=== PATIENT | female | born 1955 | race Caucasian/White ===

== ENCOUNTER 2018-04-15 17:58 | Inpatient (IN) | payer OTHER ==
[2018-04-15] MEDS ORDERED: GUAIFENESIN/DM 5 ML UCUP PO PRN (19:34)
[2018-04-15] MEDS ORDERED: ACETAMINOPHEN 500 MG TAB PO PRN (19:34)
[2018-04-15] MEDS ORDERED: ALPRAZOLAM 0.25 MG TABLET PO PRN (19:36)
[2018-04-15] MEDS ORDERED: MAGNES/ALUMIN/SIMET 30ML UCUP PO PRN (19:36)
[2018-04-15] MEDS ORDERED: MAGNESIUM HYDROXIDE 8% 30 ML PO PRN (19:36)
[2018-04-15 20:26] LABS: Absolute Lymphocytes (CBC) 1.5 K/uL (0.7-4.9); Absolute Neutrophil 6.5 K/uL (1.8-8.0); Basophils % 0.4 % (0-1.3); Eosinophils % 2.3 % (0-4.4); Hematocrit 40.4 % (36.0-45.0); Lymphocytes % 16.7 % (15.3-44.8); MCH 33.2 pg (27.0-35.0); MCV 94.6 fL (80-100); MPV 8.5 fL (7.6-11.3); Monocytes % 10.6 % (3.3-12.3); RBC Red Blood Cell Count 4.27 M/uL (3.86-4.86)
--- NOTE | 2018-04-15 20:41 | RAD REPORT ---
EXAM DESCRIPTION: RAD - Chest Pa And Lat (2 Views) - 04/15/2018 8:36 pm CLINICAL HISTORY: COPD exacerbation Chest pain. COMPARISON: Chest Single View dated 08/31/2016; Chest Single View dated 08/30/2016; CHEST PA AND LAT 2 VIEW dated 05/05/2013; CHEST PA AND LAT 2 VIEW dated 11/08/2006 TECHNIQUE: PA and lateral views of the chest were obtained. FINDINGS: The lungs are hyperexpanded compatible with COPD. The heart is upper limit of normal in si ze. No fracture or aggressive bony process. IMPRESSION: COPD without acute process identified.
[2018-04-15 20:49] LABS: Albumin 3.6 g/dL (3.4-5.0); Bilirubin Total 0.5 mg/dL (0.2-1.0); Magnesium 2.3 mg/dL (1.8-2.4); Potassium 4.1 mmol/L (3.5-5.1); Thyroid Stimulating Hormone 1.13 uIU/mL (0.360-3.740)
[2018-04-15] MEDS: ALBUTEROL 2.5 MG/3 ML NEB SOL NEB PRN (21:23)
[2018-04-15] MEDS: IPRATROPIUM BROM 0.5MG/2.5ML NEB SCH (21:23)
[2018-04-15] MEDS: ARFORMOTEROL TARTRATE 15 MCG/2 ML VIAL.NEB NEB SCH (21:23)
[2018-04-15] MEDS: Levofloxacin500mg IV 500 MG/100 ML BAG IV SCH (23:18)
[2018-04-15] MEDS: ENOXAPARIN 40 MG/0.4 ML SQ SCH (23:19)
[2018-04-16] MEDS: ALBUTEROL 2.5 MG/3 ML NEB SOL NEB PRN ×2 (02:09→07:43)
[2018-04-16] MEDS: IPRATROPIUM BROM 0.5MG/2.5ML NEB SCH ×4 (02:09→19:58)
--- NOTE | 2018-04-16 06:38 | HP ---
Date of Admission: 04/15/2018 Chief Complaint: Cough, congestion, shortness of breath. History Of Present Illness: This is a 62-year-old female patient who came in to office to see me on 03/21/2018 with almost 1-month long history of cough, nasal drainage, coughing up yellowish colored m ucus, hoarseness of voice, and wheezing for 1 month. After she was evaluated at the office, she was treated with a Z-German for this acute bronchitis type of symptom, and the patient came in today with wo rsening of symptoms as the patient had last 2 days with increasing cough, congestion, coughing up yel lowish colored mucus, some low-grade fever, and shortness of breath. Her shortness of breath is bad enough that she even gets short of breath when she is talking. This morning when she was in the show er, she got more short of breath that she even had hard time coming out. She came in to office with her today. She appeared extremely weak and tired; and after I evaluated her, decision was ma beatrice to admit her to the hospital. Allergies: ALLERGIC TO ADHESIVE TAPE CAUSING SKIN IRRITATION, CEFUROXIME CAUSING CLOSTRIDIUM DIFFICI LE COLITIS TYPE OF PROBLEM, CODEINE CAUSING BREATHING PROBLEM WHERE THE PATIENT DESCRIBED SHE QUIT BR EATHING AFTER TAKING IT. Medications: At home, she takes Advair 250/50 one puff 2 times a day, Spiriva 1 puff daily, alendron ate 70 mg weekly, calcium with magnesium with D 1 tablet 2 times a day, famotidine 40 mg daily, ProAi r inhaler p.r.n., and vitamin D daily. Review of Systems: Respiratory: As mentioned above. Constitutional: As mentioned above. All other systems reviewed and negative. Past Medical History: Chronic kidney disease stage 3, gastroesophageal reflux disease, COPD, osteopo rosis, and hyperlipidemia. Past Surgical History: Significant for hysterectomy with oophorectomy, appendectomy, and cholecystec praneeth. Family History: Diabetes and coronary artery disease. Social History: Positive for smoking. She smokes about 2 packs per day. Use of alcohol negative. The patient was advised and counseled to quit smoking, but she refuses that. Physical Examination: Vital Signs: When I saw her at office, height 64 inches, weight 214 pounds, blood pressure 106/72, r espiratory rate 18, pulse 88, temperature 99.2. General: Awake, alert, oriented, not in distress. HEENT: Head atraumatic, normocephalic. Conjunctivae nonerythematous. Sclerae white. Mouth, no thr ush or edema noted. Ears/Nose, no mass, lesion, discharge noted. Neck: Supple. No JVD, lymph nodes, bruit, thyromegaly noted. Lungs: The patient gets into coughing spells with any attempts to take a deep breath, and she has bi lateral wheezing. No rales. Mild respiratory distress while talking. Heart: Normal heart sounds, no murmur or gallop. Abdomen: Soft, bowel sounds normal. No guarding, rigidity, tenderness, mass, hepatosplenomegaly, dis tention, or bruit noted. Extremities: No leg edema. No calf tenderness. Skin: No rash, ulcer, cellulitis. Lymphatics: No lymph node enlargement in neck, supraclavicular, infraclavicular region. Neuro: No focal neurological deficit. Chest: Unremarkable. External Genitalia: Deferred. Rectal: Deferred. Laboratory Data: White count 9.2, hemoglobin 14.2 and platelets 240. Sodium 139, potassium 4.1, chl oride 104, bicarb 28, BUN 10, creatinine 1, and glucose 97. Liver function tests unremarkable. TSH 1.13. Chest x-ray; COPD without any acute process. Impression: 1.Acute exacerbation of chronic obstructive pulmonary disease. 2.Acute bronchitis. 3.Osteoporosis. 4.Gastroesophageal reflux disease. 5.Hyperlipidemia. Plan: Admit the patient to hospital for further evaluation and management of this problem. The verito ent is appropriate for inpatient and is expected to spend 2 midnights in the hospital. The patient h as failed outpatient treatment, and she is appropriate for inpatient management at this time. We danny l continue her home medications. Start her on oxygen nebulizer treatment. Deep venous thrombosis pr ophylaxis using Lovenox. IV antibiotic, and I will also start her on IV steroid. Code status discus sed with her; and according to the patient's decision, she is full code. Details and plan of treatme nt discussed with her and her . KIT/MODL Voice ID: [id number]
[2018-04-16] MEDS: ARFORMOTEROL TARTRATE 15 MCG/2 ML VIAL.NEB NEB SCH ×2 (07:43→19:58)
[2018-04-16] MEDS: ENOXAPARIN 40 MG/0.4 ML SQ SCH (21:14)
[2018-04-16] MEDS: Levofloxacin500mg IV 500 MG/100 ML BAG IV SCH (21:15)
--- NOTE | 2018-04-17 00:37 | PN ---
Date of Progress Note: 04/16/2018 Subjective: Patient was seen this morning for followup. No new complaints or problems reported by wally harris. Lying in bed. She does not feel any better compared to yesterday. Still has lot of cough, congestion, shortness of breath, wheezing. Objective: Vital signs: Reviewed. HEENT: Unremarkable. Lungs: Bilateral scattered wheezing present, unchanged from yesterday. Heart: Sounds normal. Abdomen: Soft. Bowel sounds normal. No guarding, rigidity, tenderness, or distention. Extremities: No leg edema. Impression: Acute exacerbation of chronic obstructive pulmonary disease. Plan: We will continue current medication, oxygen, nebulizer treatment, steroids, antibiotics, and I will see her tomorrow for followup. KIT/MODL Voice ID: [id number] Report ID: [id number]
[2018-04-17] MEDS: IPRATROPIUM BROM 0.5MG/2.5ML NEB SCH ×3 (01:57→14:30)
[2018-04-17 03:54] LABS: Urine Appearance CLEAR; Urine Bilirubin NEGATIVE (NEG); Urine Blood 1+ (NEG); Urine Color YELLOW; Urine Glucose NEGATIVE (NEG); Urine Protein NEGATIVE (NEG)
[2018-04-17 03:56] LABS: Urine Microscopic Reflex ORDER UMIC
[2018-04-17 04:53] LABS: Urine Bacteria <20 /HPF (<20); Urine Culture Reflex Order NOT NEEDED; Urine RBC <5 /HPF (NONE SEEN)
[2018-04-17] MEDS: ARFORMOTEROL TARTRATE 15 MCG/2 ML VIAL.NEB NEB SCH (07:15)
[2018-04-17] MEDS: METHYLPREDNISOLONE 40 MG INJ IV SCH ×2 (08:17→17:02)
--- NOTE | 2018-04-18 17:16 | DS ---
Date of Discharge: 04/17/2018 Disposition: The patient will be discharged to go home. Physical Examination: HEENT: Unremarkable. Lungs: Minimum wheezing noted, much better than before. Heart: Sounds normal. Abdomen: Soft. Bowel sounds normal. No guarding, rigidity, tenderness, or distention. Extremities: No leg edema. Hospital Course: A 63-year-old female patient, who came into office with cough, congestion, shortnes s of breath. Please see dictated H and P for more information. After the patient was evaluated at [facility], she was admitted to the hospital with acute exacerbation of COPD problem. Chest x-ray was neg ative for pneumonia. White count was 9.2, hemoglobin 14.2, platelets 240. Sodium 139, potassium 4.1 , chloride 104, bicarb 28, BUN 10, creatinine 1, glucose 97. Liver function tests unremarkable. The patient was started on oxygen, IV antibiotics, nebulizer treatment, and her condition overall improv ed. IV steroid was started today and the patient was anxious to go home. This morning, she was feel ing much better and I informed her and her that by this evening if she feels much better and feels comfortable going home, then I will be willing to discharge her, and nurse did contact me and i nformed me that the patient was feeling much better and wanted to go home this evening, so she was di scharged to go home in stable condition with following discharge medications and instructions. Final Diagnoses: 1.Acute exacerbation of chronic obstructive pulmonary disease. 2.Acute bronchitis. 3.Osteoporosis. 4.Gastroesophageal reflux disease. 5.Hyperlipidemia. Discharge Medications And Instructions: 1.Continue all prior home medications. 2.Take Levaquin 500 mg p.o. daily for 1 week and prednisone 10 mg, the patient to take 3 tablets p.o . daily for 3 days, then 2 tablets daily for 3 days, then 1 tablet daily for 3 days, then stop. 3.Follow up at my office in 2 weeks. KIT/MODL Voice ID: [id number] Report ID: [id number]
== END 2018-04-17 18:32 | disposition home or self-care (01) | DRG 202 ==
LOC: 4TH 18:12
PROVIDERS: ADMIT Internal Medicine; ATTEND Internal Medicine
DX: J20.9 Acute bronchitis, unspecified (principal); J44.1 Chronic obstructive pulmonary disease with (acute) exacerbation; J44.0 Chronic obstructive pulmonary disease with (acute) lower respiratory infection; K21.9 Gastro-esophageal reflux disease without esophagitis; E78.5 Hyperlipidemia, unspecified; M81.0 Age-related osteoporosis without current pathological fracture; N18.3 Chronic kidney disease, stage 3 (moderate); F17.210 Nicotine dependence, cigarettes, uncomplicated; Z88.1 Allergy status to other antibiotic agents; Z88.5 Allergy status to narcotic agent; Z91.048 Other nonmedicinal substance allergy status
CPT/HCPCS: 36415; 71046; 80053; 81003; 81015; 83735; 84443; 85025; 94640; J1650; J2920; J7605

== ENCOUNTER 2019-02-03 06:27 | Day surgery (SDC) | payer OTHER ==
[2019-01-31 12:50] LABS: Absolute Lymphocytes (CBC) 2.7 K/uL (0.7-4.9); Basophils % 0.8 % (0-1.3); Eosinophils % 1.4 % (0-4.4); Hematocrit 39.1 % (36.0-45.0); MPV 8.9 fL (7.6-11.3); RBC Red Blood Cell Count 4.18 M/uL (3.86-4.86)
[2019-01-31 12:59] LABS: Protime INR 1.04
[2019-01-31 13:10] LABS: BUN Blood Urea Nitrogen 24 mg/dL (7-18); Bicarbonate 25 mmol/L (21-32); Glucose Level 89 mg/dL (74-106); HDL Cholesterol 49 mg/dL (40-60); LDL Cholesterol, Calculated 98 (<130); Potassium 3.4 mmol/L (3.5-5.1); Sodium Level 143 mmol/L (136-145); Troponin I < 0.02 ng/mL (0.0-0.045)
[2019-02-03] MEDS ORDERED: LIDOCAINE 1% MPF 30 ML VIAL ONE (06:54)
[2019-02-03] MEDS ORDERED: HEPA 1000U/500MLS 1,000 UNIT/500 ML BAG IV ONE (06:54)
[2019-02-03] MEDS ORDERED: NA CHLORIDE 0.9% 500 ML ONE (06:54)
[2019-02-03] MEDS ORDERED: MIDAZOLAM HCL 2 MG/2 ML INJ ONE (07:42)
[2019-02-03] MEDS ORDERED: FENTANYL CITR 100 MCG/2 ML ONE (07:42)
[2019-02-03] MEDS ORDERED: NA CHLORIDE 0.9% 0 ML ONE (07:43)
[2019-02-03] MEDS ORDERED: ATROPINE SULF 1 MG/10 ML SYR IV ONE (07:43)
[2019-02-03] MEDS ORDERED: ONDANSETRON 4 MG/2 ML VIAL ONE (07:43)
--- NOTE | 2019-02-03 14:49 | OP ---
Date of Procedure: 02/03/2019 Surgeon: Jt Lee MD Bolt Labeler: Jen Palacio. Procedure: Left heart catheterization with selective coronary artery angiogram. Indication: Unstable angina. Procedure In Detail: The patient had been admitted to the [facility] as an outpatient on today . She was prepped and draped in the routine sterile fashion. She was given 4 mg of Versed for IV sedation. A 6-Belizean sheath introduced in the right common femoral artery. Angio-Seal was used to close the groin. Presley catheter left and right 6-Belizean used to do the diagnostic catheterization. She was found to have a normal circumflex, codominant system, minor plaquing in the LAD and the cir cumflex but no focal stenosis. A 6-Belizean catheters and sheath were used. Complications: No complications. Blood Loss: 5 cc. Postoperative Diagnosis: Minimal coronary artery disease. We will continue medical treatment. Anesthesia: Total conscious sedation with 30 minutes. The patient will go home today and she will see me in the office in about 2 weeks. HAYLEY/ISAAC Voice ID: [id number] Report ID: [id number]
== END 2019-02-03 10:10 | disposition home or self-care (01) ==
LOC: CCL 06:27
PROC: B201YZZ Plain Radiography of Multiple Coronary Arteries using Other Contrast (ICD-10-PCS; principal; 2019-02-03)
DX: I25.110 Atherosclerotic heart disease of native coronary artery with unstable angina pectoris (principal); Z88.6 Allergy status to analgesic agent; Z88.8 Allergy status to other drugs, medicaments and biological substances; Z88.9 Allergy status to unspecified drugs, medicaments and biological substances
CPT/HCPCS: 36415; 80048; 80061; 84443; 84484; 85025; 85610; 85730; 93454; C1893; J0583; J2250; J2405; J3010

== ENCOUNTER 2019-02-10 17:26 | Observation (INO) | payer OTHER ==
[2019-02-10 18:12] LABS: Absolute Lymphocytes (CBC) 3.2 K/uL (0.7-4.9); Basophils % 1.1 % (0-1.3); Eosinophils % 1.7 % (0-4.4); Hematocrit 38.6 % (36.0-45.0); Lymphocytes % 29.3 % (15.3-44.8); MPV 8.7 fL (7.6-11.3); Monocytes % 7.2 % (3.3-12.3); RBC Red Blood Cell Count 4.19 M/uL (3.86-4.86)
[2019-02-10 18:38] LABS: Albumin 3.5 g/dL (3.4-5.0); Bilirubin Total 0.5 mg/dL (0.2-1.0); Magnesium 2.2 mg/dL (1.8-2.4); Potassium 3.4 mmol/L (3.5-5.1); Thyroid Stimulating Hormone 1.97 uIU/mL (0.360-3.740)
[2019-02-10 18:54] LABS: Arterial Blood Carboxyhemoglob 1.7 % (0-1.5); Blood Gas Oxyhemoglobin 94.4 % (94-97); Blood O2 Saturation 96.5 % (92-98.5)
[2019-02-10] MEDS ORDERED: METHYLPREDNISOLONE 40 MG INJ IV ONE (18:54)
[2019-02-10] MEDS ORDERED: POTASSIUM CL SA 10 MEQ TAB PO ONE (20:00)
--- NOTE | 2019-02-10 20:39 | RAD REPORT ---
EXAM DESCRIPTION: CT - Chest For Pe Angio - 02/10/2019 8:24 pm CLINICAL HISTORY: sob COMPARISON: 2017 TECHNIQUE: Dynamically enhanced axial 3 mm thick images of the chest were obtained during administra tion of <100> mL Isovue 370 IV contrast. Coronal and oblique reconstruction images were generated and reviewed. Exam utilizes a protocol for optimal evaluation of pulmonary arterial tree. Maximum intensity projections 3D imaging was utilized All CT scans are performed using dose optimization technique as appropriate and may include automated exposure control or mA/KV adjustment according to patient size. FINDINGS: A pulmonary embolus is not seen. A thoracic aortic aneurysm is not noted. A pleural effusion is not seen. A pericardial effusion is not seen. A lung consolidation is not present. Mild COPD 13 millimeter left adrenal mass unchanged probably an adenoma IMPRESSION: Negative for a pulmonary embolism.
[2019-02-10] MEDS: ALBUTEROL 2.5 MG/3 ML NEB SOL NEB SCH (23:30)
[2019-02-10] MEDS: IPRATROPIUM BROM 0.5MG/2.5ML NEB SCH (23:30)
[2019-02-11] MEDS: IPRATROPIUM BROM 0.5MG/2.5ML NEB SCH ×4 (03:40→16:00)
[2019-02-11] MEDS: ALBUTEROL 2.5 MG/3 ML NEB SOL NEB SCH ×4 (03:40→16:00)
[2019-02-11 05:06] LABS: Potassium 3.3 mmol/L (3.5-5.1)
[2019-02-11] MEDS ORDERED: POTASSIUM CL SA 10 MEQ TAB PO ONE (07:00)
[2019-02-11] MEDS ORDERED: NA CHLORIDE 0.9% 1,000 ML IV SCH (08:00)
[2019-02-11 08:23] LABS: Potassium 4.1 mmol/L (3.5-5.1)
[2019-02-11] MEDS: NA CHLORIDE 0.9% 1,000 ML IV SCH ×2 (08:43→16:00)
[2019-02-11] MEDS ORDERED: DULERA 100/5 (MOMETASONE/FORMOTEROL) INHALER IH SCH (09:00)
[2019-02-11] MEDS ORDERED: ENOXAPARIN 40 MG/0.4 ML SQ SCH (09:00)
[2019-02-11] MEDS: TIOTROPIUM 5 SPRAYS/INHALER IH SCH ×2 (09:00→13:34)
--- NOTE | 2019-02-11 10:39 | RAD REPORT ---
EXAM DESCRIPTION: CT - Abdomen Pelvis Wo Contrast - 02/11/2019 9:58 am CLINICAL HISTORY: Abdominal pain, bloating COMPARISON: CT angio February 10 TECHNIQUE: Axial [address] imaging of the abdomen and pelvis was performed without IV contrast. No IV contrast was given because of allergy, abnormal renal function, patient refusal or physician re quest. Oral contrast was given. All CT scans are performed using dose optimization technique as appropriate and may include automated exposure control or mA/KV adjustment according to patient size. FINDINGS: No suspicious findings in the lung bases. The liver, spleen and pancreas show no suspicious findings on non-contrast imaging. Gallbladder is ti ghtly contracted or absent. No cholecystectomy clips are seen. No biliary tree dilatation. No hydronephrosis or suspicious renal mass. No significant adrenal finding. Isodense renal masses an d pyelonephritis cannot be excluded in the absence of IV contrast. No bladder abnormality seen. Contr ast is present in the urinary bladder as a remnant from the prior day contrast CT study. Uterus is ab sent. Ovaries are absent or atrophic. No adnexal mass. No dilated bowel loops or bowel wall thickening. No free air, free fluid or inflammatory stranding. N o mass or bulky lymphadenopathy. Patient has a very small 10 mm fat only umbilical hernia. No suspicious bony findings. IMPRESSION: Non-contrast enhanced CT abdomen and pelvis imaging show no significant or suspicious fi nding. Full assessment is limited is the absence of IV contrast.
[2019-02-11 15:30] LABS: Potassium 3.7 mmol/L (3.5-5.1)
--- NOTE | 2019-02-11 18:53 | HP ---
Date of Admission: 02/10/2019 Chief Complaint: Shortness of breath. History Of Present Illness: This is a 63-year-old female patient who has a longstanding history of s moking and recently quit within last month or 2 months, came into office today for followup. She is having shortness of breath with any day-to-day activity lately. Uses her inhaler regularly. She was on Advair and Spiriva and recently started seeing Dr. Quintero who changed to [place] and patient sa ys that this really gave bad taste in the mouth and did not help any better than Advair and Spiriva, so she went back to her Advair and Spiriva inhaler. Her furosemide was discontinued and she was give n acetazolamide but by mistake she has continued to take furosemide instead of acetazolamide as she r eports. The patient also was seen by [facility], had echocardiogram done within last month at the office of [facility], which was unremarkable with normal ejection fraction and Dr. Navarrete did a car diac catheterization on her on February 03, 2019, showed normal coronary arteries. So the patient came in to office today. Her room air oxygen saturation at office was ranging anywhere from 80% to 87%. We tried to check oxygen saturation on multiple different fingers and the lowest was 80%, highest was 87 %. With this significant hypoxia problem, the patient was admitted directly to the hospital. Allergies: TO CODEINE, CEFUROXIME AND TAPE. Medications: List reviewed. Review of Systems: Respiratory: As mentioned above. Cardiovascular: Has bilateral leg edema. All other systems revie wed and negative. Social History: Longstanding history of smoking and she quit smoking within last couple of months or so. Family History: Diabetes, coronary artery disease. Past Medical History: Gastroesophageal reflux disease, COPD, hyperlipidemia, osteoporosis, and chron ic kidney disease stage 3. Past Surgical History: Hysterectomy with oophorectomy, appendectomy, cholecystectomy. Physical Examination: Vital Signs: When the patient was first admitted, temperature 97, pulse 78, respiratory rate 20, blo od pressure 143/74, oxygen saturation was recorded 97% on room air at the hospital. General: Awake, alert, oriented, not in distress. HEENT: Head atraumatic, normocephalic. Conjunctivae nonerythematous. Sclerae white. Mouth, no thr ush or edema noted. Ears/Nose, no mass, lesion, discharge noted. Neck: Supple. No JVD, lymph nodes, bruit, thyromegaly noted. Lungs: Bilateral good equal air entry. Clear to auscultation. No rhonchi. No rales. Heart: Normal heart sounds, no murmur or gallop. Abdomen: Soft, bowel sounds normal. No guarding, rigidity, tenderness, mass, hepatosplenomegaly, dis tention, or bruit noted. Extremities: Bilateral grade 1 pedal edema. Skin: No rash, ulcer, cellulitis. Lymphatics: No lymph node enlargement in neck, supraclavicular, infraclavicular region. Neuro: No focal neurological deficit. Chest: Unremarkable. External Genitalia: Deferred. Rectal: Deferred. Laboratory Data: White count 11, hemoglobin 13.1, platelets 323 with room air arterial blood gas pH 7.44, pCO2 34.2, PO2 76.8, oxygen saturation 96.5% on room air. Sodium 142, potassium 3.4, chloride 110, bicarb 25, BUN 19, creatinine 1.07, glucose 82. Liver function tests unremarkable. TSH 1.97. CT scan of the chest per PE protocol was ordered to be done stat and results came back negative for a ny evidence of pulmonary embolism. Impression: 1.Hypoxia. 2.Severe chronic obstructive pulmonary disease. 3.Hypokalemia. 4.Gastroesophageal reflux disease. 5.Osteoporosis. 6.Hyperlipidemia. Plan: Admit the patient to hospital for further evaluation and management of this problem. We wante d to go ahead and get a CT scan of the chest per PE protocol as that has not been ruled out with her significant shortness of breath complaint and after she was admitted to the hospital, this test was d one, result came back negative. She had significant hypoxia as it was evident in office and at the h ospital we are not able to demonstrate that so what likely scenario is probably the patient has long thick fingernails with nail maltese on it and we tried 3-4 different multiple fingers at the office an d the result was same with oxygen saturation ranging from 80-87%, but we are not able to demonstrate that at the hospital, so very likely what we were reading at the office was probably was not accurate reading on the oxygen saturation. In any case, we will continue to monitor her overnight here in [facility] and I will visit with her tomorrow and will have respiratory therapist also evaluate her t o see whether she has any hypoxia and if she does need and qualify for home oxygen or not but so far, it appears that she does not. Home medications will be continued. We will repeat blood work tomorr ow, replace potassium per protocol and please add diagnosis of hypokalemia. I will see her tomorrow morning for followup. KIT/MODL Voice ID: [id number]
[2019-02-11] MEDS ORDERED: ADVAIR IH SCH (21:00)
--- NOTE | 2019-02-12 02:18 | DS ---
Date of Discharge: 02/11/2019 Disposition: Discharged to go home. Physical Examination: HEENT: Unremarkable. Lungs: Clear to auscultation. Heart: Sounds normal. Abdomen: Soft. Bowel sounds normal. No guarding, rigidity, tenderness, distention. Extremities: Bilateral grade 1 pedal edema. Laboratory Data: Yesterday upon admission, sodium 142, potassium 3.4, chloride 110, bicarb 25, BUN 1 9, creatinine 1.07. This morning, BUN 22, creatinine 1.57, potassium 3.3, and after IV fluid hydrati on, last BUN 21, creatinine 1.09, and potassium 3.7. Yesterday, blood gas, pH 7.44, pCO2 34.2, PO2 7 6.8, saturation 96.5 on room air. CAT scan of the abdomen done today without IV contrast was unremar kable and CAT scan of the chest per PE protocol done yesterday shows no evidence of pulmonary embolis m. Hospital Course: A 63-year-old female patient admitted to the hospital with shortness of breath prob rose along with hypoxia. Please see dictated H and P for more information. After the patient was adm itted to the hospital, further workup was done including CAT scan of the chest per PE protocol, which was negative for pulmonary embolism. Her oxygen saturation at office was ranging from 80% to 87% an d this was on room air and we checked on multiple different fingers and lowest oxygen saturation was 80%, highest 87%. Ever since she has been in hospital, her oxygen saturation has been around 96-97% on room air. Today, I talked to respiratory therapist and requested respiratory therapist to have th e patient walk in the hallway with monitoring of her oxygen saturation and the patient walked for abo ut 10 minutes or so and her oxygen saturation remained at 97% on room air. So, obviously it is clear that the patient's hypoxia that was noted yesterday in the office was not a true result. It was fal se result and likely due to her thick fingernails with some nail panamanian that probably was affecting t he accuracy of the oxygen saturation level. In any case, we do not have any evidence of hypoxia duri ng this hospitalization. The patient does not need any home oxygen. I did talk to her personal care worker , Dr. Quintero and details were discussed with him. The patient was requested to follow up with him next week and Dr. Quintero was made aware of all these test results. The patient's creatinine was el evated this morning, very likely from IV contrast that she received yesterday with a CT scan of the c hest and after IV fluid hydration, creatinine has returned back to normal. Final Diagnoses: 1.Hypoxia. 2.Severe COPD. 3.Hypokalemia. 4.Gastroesophageal reflux disease. 5.Osteoporosis. 6.Hyperlipidemia. 7.Acute kidney injury, resolved. KIT/MODL Voice ID: [id number] Report ID: [id number]
[2019-02-12] MEDS ORDERED: LEVOTHYROXINE SODIUM 50 MCG PO SCH (06:30)
== END 2019-02-11 17:30 | disposition home or self-care (01) ==
LOC: 4TH 17:26
PROVIDERS: ADMIT Internal Medicine; ATTEND Internal Medicine
DX: J44.9 Chronic obstructive pulmonary disease, unspecified (principal); N18.3 Chronic kidney disease, stage 3 (moderate); K21.9 Gastro-esophageal reflux disease without esophagitis; E87.6 Hypokalemia; E78.5 Hyperlipidemia, unspecified; M81.0 Age-related osteoporosis without current pathological fracture; Z87.891 Personal history of nicotine dependence; N17.9 Acute kidney failure, unspecified
CPT/HCPCS: 36415; 71275; 74176; 80048; 80053; 82805; 83735; 84132; 84443; 85025; 94640; G0378; J1650; J2920; J7030; J7606; Q9967

== ENCOUNTER 2022-12-24 12:11 | Inpatient (IN) | payer OTHER ==
[2022-12-24] MEDS ORDERED: IPRATROPIUM BROM 0.5MG/2.5ML ONE (12:47)
[2022-12-24] MEDS ORDERED: ALBUTEROL 2.5 MG/3 ML NEB SOL ONE (12:47)
[2022-12-24] MEDS ORDERED: METHYLPREDNISOLONE 125 MG INJ ONE (12:47)
--- NOTE | 2022-12-24 13:00 | RAD REPORT ---
EXAM DESCRIPTION: RAD - Chest Single View - 12/24/2022 12:51 pm CLINICAL HISTORY: COPD Chest pain. COMPARISON: <Comparisons> FINDINGS: Portable technique limits examination quality. Mild interstitial pulmonary edema suspected. The heart is upper limit of normal in size. No displaced fractures. IMPRESSION: Mild pulmonary edema.
[2022-12-24 13:53] LABS: Absolute Lymphocytes (CBC) 1.3 K/uL (0.7-4.9); Hematocrit 40.5 % (36.0-45.0); MCV 89.8 fL (80-100); MPV 8.3 fL (7.6-11.3); RBC Red Blood Cell Count 4.51 M/uL (3.86-4.86)
[2022-12-24 14:11] LABS: Albumin 3.7 g/dL (3.4-5.0); Bilirubin Total 0.6 mg/dL (0.2-1.0); Potassium 3.6 mEq/L (3.5-5.1); Protein, Total 7.6 g/dL (6.4-8.2); Troponin High Sensitivity 6.9 pg/mL (<58.9)
[2022-12-24] MEDS ORDERED: FUROSEMIDE 40 MG/4 ML VIAL ONE (15:04)
--- NOTE | 2022-12-24 15:09 | EDPHYS ---
Physician Documentation [facility] Name: Suma James Age: 67 yrs Sex: Female : 1955 Arrival Date: 12/24/2022 Time: 12:11 Bed 16 Private MD: Carl Ambriz C ED Physician Gallito Hyman HPI: 12/24 16:12 This 67 yrs old Female presents to ER via Wheelchair with complaints of Breathing rt Difficulty. 16:12 Patient with history of COPD presents to the ED with progressively worsening dyspnea, rt cough, nonproductive over the past 2 days. Denies chest pain, states that her lungs do feel tight. Denies other acute complaints at this time. Symptoms are moderate in severity, no other aggravating or alleviating factors.. Historical: - Allergies: 12:19 Ceftin; iw 12:19 Codeine; iw 12:19 Tape; iw - PMHx: 12:19 Chronic obstructive lung disease; iw - PSHx: 12:19 hysterectomy; Appendectomy; Tonsillectomy; Cholecystectomy; iw - Immunization history:: Flu vaccine is up to date. - Social history:: Smoking status: Patient/guardian denies using tobacco, the patient reports quitting approximately 4 years ago. - Family history:: not pertinent. ROS: 16:12 Constitutional: Negative for fever, chills, and weight loss, Eyes: Negative for injury, rt pain, redness, and discharge, Cardiovascular: Negative for chest pain, palpitations, and edema, Abdomen/GI: Negative for abdominal pain, nausea, vomiting, diarrhea, and constipation, MS/Extremity: Negative for injury and deformity, Skin: Negative for injury, rash, and discoloration, Neuro: Negative for headache, weakness, numbness, tingling, and seizure, Psych: Negative for depression, anxiety, suicide ideation, homicidal ideation, and hallucinations. 16:12 Respiratory: Positive for cough, shortness of breath. Exam: 16:10 ECG was reviewed by the Attending Physician. rt 16:12 Constitutional: This is a well developed, well nourished patient who is awake, alert, rt and in no acute distress. Head/Face: Normocephalic, atraumatic. Chest/axilla: Normal chest wall appearance and motion. Nontender with no deformity. No lesions are appreciated. Cardiovascular: Regular rate and rhythm with a normal S1 and S2. No gallops, murmurs, or rubs. Normal PMI, no JVD. No pulse deficits. Abdomen/GI: Soft, non-tender, with normal bowel sounds. No distension or tympany. No guarding or rebound. No evidence of tenderness throughout. Skin: Warm, dry with normal turgor. Normal color with no rashes, no lesions, and no evidence of cellulitis. MS/ Extremity: Pulses equal, no cyanosis. Neurovascular intact. Full, normal range of motion. Neuro: Awake and alert, GCS 15, oriented to person, place, time, and situation. Cranial nerves II-XII grossly intact. Motor strength 5/5 in all extremities. Sensory grossly intact. Cerebellar exam normal. Normal gait. Psych: Awake, alert, with orientation to person, place and time. Behavior, mood, and affect are within normal limits. 16:12 Respiratory: Wheezes on all lung lazaro with bibasilar crackles, mild to moderate respiratory distress. Vital Signs: 12:17 BP 144 / 71; Pulse 98; Resp 24 S; Temp 98.3; Pulse Ox 94% on R/A; Weight 104.33 kg; iw Height 5 ft. 2 in. ; 13:15 BP 135 / 72; Pulse 96; Resp 20; Pulse Ox 100% on R/A; eh3 14:15 BP 125 / 71; Pulse 104; Resp 20; Pulse Ox 95% on R/A; eh3 15:15 BP 141 / 61; Pulse 97; Resp 20; Pulse Ox 97% on R/A; eh3 16:15 BP 141 / 86; Pulse 99; Resp 20; Pulse Ox 98% on R/A; eh3 12:17 Body Mass Index 42.07 (104.33 kg, 157.48 cm) iw MDM: 12:21 Patient medically screened. rt 16:14 Differential diagnosis: CHF exacerbation, Chronic Obstructive Pulmonary Disease rt Myocardial Infarction pulmonary edema, Pulmonary Embolism reactive airway disease. Data reviewed: vital signs, nurses notes. Consideration of Admission/Observation Patient was admitted/placed on observation. Management of patient was discussed with the following: Primary Care Provider: Agrees to admit. I considered the following discharge prescriptions or medication management in the emergency department Medications were administered in the Emergency Department. See MAR. Counseling: I had a detailed discussion with the patient and/or guardian regarding: the historical points, exam findings, and any diagnostic results supporting the discharge/admit diagnosis, lab results, radiology results, the need for further work-up and treatment in the hospital. 12/24 12:29 Order name: CBC with Diff; Complete Time: 14:06 rt 12/24 12:29 Order name: CMP; Complete Time: 14:15 rt 12/24 12:29 Order name: Troponin High Sensitivity; Complete Time: 14:15 rt 12/24 12:29 Order name: BNP; Complete Time: 14:15 rt 12/24 12:29 Order name: Chest Single View XRAY; Complete Time: 13:02 rt 12/24 15:02 Order name: CT Chest For PE Angio rt 12/24 15:40 Order name: CT; Complete Time: 16:09 EDMS 12/24 12:29 Order name: EKG; Complete Time: 12:29 rt 12/24 12:29 Order name: EKG - Nurse/Tech; Complete Time: 12:43 rt EC:10 Rate is 99 beats/min. Rhythm is regular, Normal Sinus Rhythm with No ectopy. QRS [place] rt is Normal. LA interval is normal. QRS interval is normal. QT interval is normal. Clinical impression: NSR w/ Non-specific ST/T Changes. Interpreted by me. Administered Medications: 12:45 Drug: DuoNeb Nebulize (3:1) (2.5 mg - 0.5 mg) 3 ml Route: Nebulizer; 3 13:30 Follow up: Response: Wheezing diminished eh3 13:45 Drug: MethylPrednisoLONE IVP 125 mg Route: IVP; Site: left antecubital; eh3 14:45 Follow up: Response: No adverse reaction eh3 15:00 Drug: Furosemide IVP 40 mg Route: IVP; Site: left antecubital; eh3 16:00 Follow up: Response: No adverse reaction eh3 Disposition Summary: 12/24/22 15:09 Hospitalization Ordered Hospitalization Status: Observation rt Provider: Carl Ambriz rt Location: Telemetry/MedSurg (observation) rt Condition: Stable rt Problem: new rt Symptoms: have improved rt Bed/Room Type: Standard rt Room Assignment: 221(12/24/22 15:54) eb Diagnosis - Acute pulmonary edema rt - Hypoxemia rt Forms: - Medication Reconciliation Form rt - SBAR form rt Signatures: Dispatcher [employer] EDMS Portillo, Luana, RN RN Christine Sevilla Erin, RN RN eh3 Gallito Hyman MD MD rt Corrections: (The following items were deleted from the chart) 15:54 15:09 rt eleanor
--- NOTE | 2022-12-24 15:09 | ER ---
Nurse's Notes [facility] Name: Suma James Age: 67 yrs Sex: Female : 1955 Arrival Date: 12/24/2022 Time: 12:11 Bed 16 Private MD: Carl Ambriz C Diagnosis: Acute pulmonary edema;Hypoxemia Presentation: 12/24 12:17 Chief complaint: Patient states: hx of COPD , has been sick past two days, diff iw breathing , gets hot and cold , feeling weak and tired. Coronavirus screen: Client presents with at least one sign or symptom that may indicate coronavirus-19. Ebola Screen: Patient negative for fever greater than or equal to 101.5 degrees Fahrenheit, and additional compatible Ebola Virus Disease symptoms Patient denies exposure to infectious person. Patient denies travel to an Ebola-affected area in the 21 days before illness onset. No symptoms or risks identified at this time. Initial Sepsis Screen: Does the patient meet any 2 criteria? No. Patient's initial sepsis screen is negative. Does the patient have a suspected source of infection? No. Patient's initial sepsis screen is negative. Risk Assessment: Do you want to hurt yourself or someone else? Patient reports no desire to harm self or others. Onset of symptoms was December 22, 2022. 12:17 Method Of Arrival: Wheelchair iw 12:17 Acuity: ARIEL 3 iw Triage Assessment: 12:30 General: Appears in no apparent distress. uncomfortable, Behavior is cooperative, eh3 appropriate for age, anxious. Respiratory: Onset: The symptoms/episode began/occurred gradually. Respiratory: the patient has moderate shortness of breath. Historical: - Allergies: 12:19 Ceftin; iw 12:19 Codeine; iw 12:19 Tape; iw - PMHx: 12:19 Chronic obstructive lung disease; iw - PSHx: 12:19 hysterectomy; Appendectomy; Tonsillectomy; Cholecystectomy; iw - Immunization history:: Flu vaccine is up to date. - Social history:: Smoking status: Patient/guardian denies using tobacco, the patient reports quitting approximately 4 years ago. - Family history:: not pertinent. Screenin:30 [facility] ED Fall Risk Assessment (Adult) Score/Fall Risk Level 0 - 2 = Low Risk. Abuse eh3 screen: Denies threats or abuse. Denies injuries from another. Nutritional screening: No deficits noted. Tuberculosis screening: No symptoms or risk factors identified. Assessment: 12:30 General: Appears distressed, uncomfortable, Behavior is cooperative, anxious. Pain: eh3 Denies pain. Neuro: Level of Consciousness is awake, alert, obeys commands, Oriented to person, place, time, situation. Cardiovascular: Capillary refill < 3 seconds Patient's skin is warm and dry. Rhythm is sinus rhythm. Respiratory: Reports shortness of breath at rest labored breathing pain with cough Airway is patent Respiratory effort is even, labored, Respiratory pattern is regular, symmetrical, Breath sounds are clear bilaterally. GI: Abdomen is round non-distended. : No signs and/or symptoms were reported regarding the genitourinary system. EENT: No signs and/or symptoms were reported regarding the EENT system. Derm: Skin is pink, warm \\T\\ dry. Musculoskeletal: No signs and/or symptoms reported regarding the musculoskeletal system. 13:15 Reassessment: Patient appears in no apparent distress at this time. Patient and/or eh3 family updated on plan of care and expected duration. Pain level reassessed. Patient is alert, oriented x 3, equal unlabored respirations, skin warm/dry/pink. 14:15 Reassessment: Patient appears in no apparent distress at this time. Patient and/or eh3 family updated on plan of care and expected duration. Pain level reassessed. Patient is alert, oriented x 3, equal unlabored respirations, skin warm/dry/pink. 14:43 Reassessment: Pt stated feeling "winded" after using the restroom and moving from vg1 wheelchair to bed. O2 88% RA, pt was able to adjust without oxygen, O2 at 94% RA; Provider notified. 14:46 Reassessment: O2 fluctuating from 94-96% RA, pt saying "help" and breathing very eh3 labored, O2 via NC initiated at 2L/min. 15:15 Reassessment: Patient appears in no apparent distress at this time. Patient and/or eh3 family updated on plan of care and expected duration. Pain level reassessed. Patient is alert, oriented x 3, equal unlabored respirations, skin warm/dry/pink. O2 via discontinued and SpO2 remains above 95% on RA. 16:13 Reassessment: Nurse to nurse report received by BUSHRA Jacobsen on 2nd floor. eh3 Vital Signs: 12:17 BP 144 / 71; Pulse 98; Resp 24 S; Temp 98.3; Pulse Ox 94% on R/A; Weight 104.33 kg; iw Height 5 ft. 2 in. ; 13:15 BP 135 / 72; Pulse 96; Resp 20; Pulse Ox 100% on R/A; eh3 14:15 BP 125 / 71; Pulse 104; Resp 20; Pulse Ox 95% on R/A; eh3 15:15 BP 141 / 61; Pulse 97; Resp 20; Pulse Ox 97% on R/A; eh3 16:15 BP 141 / 86; Pulse 99; Resp 20; Pulse Ox 98% on R/A; eh3 12:17 Body Mass Index 42.07 (104.33 kg, 157.48 cm) iw ED Course: 12:12 Patient arrived in ED. rg4 12:12 Carl Ambriz MD is Private Physician. rg4 12:12 Gallito Hyman MD is Attending Physician. rt 12:19 Triage completed. iw 12:20 Arm band placed on. iw 12:30 Lexii Whitney RN is Primary Nurse. eh3 12:42 Patient has correct armband on for positive identification. Placed in gown. Bed in low mm9 position. Call light in reach. Side rails up X 1. Adult w/ patient. Warm blanket given. Client placed on continuous cardiac and pulse oximetry monitoring. NIBP monitoring applied. monitor tech on. Pulse ox on. NIBP on. 12:42 EKG done, by ED staff, reviewed by Gallito Hyman MD. mm9 12:45 Missed attempt(s): 22 gauge in right antecubital area. Bleeding controlled, band aid eh3 applied, catheter tip intact. 12:53 Chest Single View XRAY In Process Unspecified. EDMS 15:08 Carl Ambriz MD is Hospitalizing Provider. rt 16:15 No provider procedures requiring assistance completed. Patient admitted, IV remains in eh3 place. Administered Medications: 12:45 Drug: DuoNeb Nebulize (3:1) (2.5 mg - 0.5 mg) 3 ml Route: Nebulizer; eh3 13:30 Follow up: Response: Wheezing diminished eh3 13:45 Drug: MethylPrednisoLONE IVP 125 mg Route: IVP; Site: left antecubital; eh3 14:45 Follow up: Response: No adverse reaction [facility] 15:00 Drug: Furosemide IVP 40 mg Route: IVP; Site: left antecubital; [facility] 16:00 Follow up: Response: No adverse reaction [facility] Medication: 16:15 VIS not applicable for this client. 3 Outcome: 15:09 Decision to Hospitalize by Provider. rt 16:15 Admitted to Med/surg accompanied by tech, family with patient, via wheelchair, room [facility] 221, Report called to Ann-Marie 16:15 Condition: stable 16:15 Instructed on the need for admit. 16:31 Patient left the ED. [facility] Signatures: Dispatcher [employer] EDLuana Cummins RN RN iw Garcia, Rubi rg4 Kelsea Kenyon RN RN 1 Lexii Whitney RN RN 3 Willa Keyes mm9 Gallito Hyman MD MD rt Corrections: (The following items were deleted from the chart) 14:11 12:37 Lexii Whitney RN is Primary Nurse. [place] [id number]
--- NOTE | 2022-12-24 15:40 | RAD REPORT ---
EXAM DESCRIPTION: CT - Chest For Pe Angio - 12/24/2022 3:29 pm CLINICAL HISTORY: Chest pain. DYSPNEA COMPARISON: <Comparisons> TECHNIQUE: CT angiogram of the pulmonary arteries was performed with MIP. All CT scans are performed using dose optimization technique as appropriate and may include automated exposure control or mA/KV adjustment according to patient size. FINDINGS: No evidence of pulmonary thromboembolism. No acute aortic finding demonstrated. Mild diffuse COPD. No significant pericardial or pleural fluid. No concerning bony finding. IMPRESSION: No evidence of pulmonary thromboembolism. Mild COPD.
[2022-12-24] MEDS ORDERED: ALBUTEROL 2.5 MG/3 ML NEB SOL NEB SCH (16:25)
[2022-12-24] MEDS ORDERED: IPRATROPIUM BROM 0.5MG/2.5ML NEB SCH (16:25)
[2022-12-24] MEDS ORDERED: AZITHROMYCIN IV 500 MG in NA CHLORIDE 0.9% 250 ML IVPB ONE (17:07)
[2022-12-24 17:12] VITALS: BMI 42.0
[2022-12-24] MEDS: ALBUTEROL 2.5 MG/3 ML NEB SOL NEB SCH ×2 (17:15→20:25)
[2022-12-24] MEDS: IPRATROPIUM BROM 0.5MG/2.5ML NEB SCH ×2 (17:15→20:25)
[2022-12-24] MEDS: METHYLPREDNISOLONE 40 MG INJ IV SCH (21:38)
[2022-12-25] MEDS: IPRATROPIUM BROM 0.5MG/2.5ML NEB SCH ×7 (00:10→23:40)
[2022-12-25] MEDS: ALBUTEROL 2.5 MG/3 ML NEB SOL NEB SCH ×7 (00:10→23:40)
[2022-12-25] MEDS: METHYLPREDNISOLONE 40 MG INJ IV SCH ×2 (00:29→09:54)
[2022-12-25 02:38] LABS: Absolute Lymphocytes (CBC) 0.4 K/uL (0.7-4.9); Hematocrit 40.9 % (36.0-45.0); Lymphocytes % 5.6 % (15.3-44.8); MCV 89.5 fL (80-100); MPV 7.9 fL (7.6-11.3); RBC Red Blood Cell Count 4.57 M/uL (3.86-4.86)
[2022-12-25 02:53] LABS: Potassium 3.3 mEq/L (3.5-5.1)
[2022-12-25] MEDS: DULERA 200/5 (MOMETASONE/FORMOTEROL) INHALER IH SCH ×3 (08:00→21:00)
[2022-12-25] MEDS ORDERED: ALPRAZOLAM 0.25 MG TABLET PO ONE ×2 (08:00→10:00)
[2022-12-25] MEDS ORDERED: FUROSEMIDE 20 MG/ 2ML VIAL IV ONE (08:48)
[2022-12-25] MEDS: ARFORMOTEROL TARTRATE 15 MCG/2 ML VIAL.NEB NEB SCH ×2 (08:49→20:05)
[2022-12-25] MEDS ORDERED: AMOX/K CLAV 875 MG TAB PO SCH (09:00)
[2022-12-25] MEDS: ENOXAPARIN 40 MG/0.4 ML SQ SCH ×2 (09:00→09:53)
[2022-12-25] MEDS: AZITHROMYCIN IV 250 MG in NA CHLORIDE 0.9% 250 ML IVPB SCH (10:16)
[2022-12-25] MEDS: NA CHLORIDE 0.9% 1,000 ML IV SCH (12:05)
--- NOTE | 2022-12-25 12:24 | P.CNS ---
Date of Consult: 12/25/22 Reason for Consult: Respiratory distress Chief Complaint: Shortness of breath History of Present Illness: Patient is 67 years of age with a history of COPD admitted with acute onset of shortness of breath became progressively worse does have a history of COPD she quit smoking 4 years ago has been vaping since uses Incruse and Advair at home have been in the hospital she is still fairly tachypneic [place] any fever chills or productive cough 1 episode of hemoptysis Allergies cefuroxime [From Ceftin] Allergy (Verified 02/10/19 18:58) Anaphylaxis codeine Allergy (Verified 02/10/19 18:58) Anaphylaxis tape Allergy (Uncoded 08/30/16 15:24) Rash Home Medications: Albuterol Sulfate [Proair Hfa] 8.5 gm IH PRN PRN 12/24/22 Fluticasone/Salmeterol [Advair 250-50 Diskus] 1 puff IH BID 12/24/22 Triamterene/Hydrochlorothiazid [Triamterene-Hctz 37.5-25 mg Tb] 0.5 tab PO DAILY 12/24/22 Umeclidinium [place] [Incruse Ellipta] 1 puff IH DAILY 12/24/22 - Past Medical/Surgical History Diabetic: No -: COPD -: Cardiac cath procedure- no stent -: Hysterectomy -: Ovary removal tumor -: Appendectomy -: Cholecystectomy -: tonsillectomy - Family History Mother Medical History: Stroke - Social History Smoking Status: Current every day smoker Alcohol use: No CD- Drugs: No Caffeine use: Yes Place of Residence: Home Review of Systems 10-point ROS is otherwise unremarkable General: Weakness Respiratory: Cough, Shortness of Breath Physical Examination Temp Pulse Resp BP Pulse Ox 98.3 F 118 H 20 145/75 H 94 12/25/22 04:00 12/25/22 10:02 12/25/22 04:00 12/25/22 10:02 12/25/22 04:00 General: Alert, Oriented x3, Moderate distress Respiratory: Clear to auscultation bilaterally, Diminished Cardiovascular: No edema, Regular rate/rhythm, Normal S1 S2 Gastrointestinal: Normal bowel sounds, Soft and benign, Non-distended Musculoskeletal: No clubbing, No swelling Laboratory Data (last 24 hrs) 12/24/22 13:40: Sodium 136, Potassium 3.6, BUN 13, Creatinine 1.18 H, Glucose 116 H, Total Bilirubin 0.6, AST 24, ALT 32, Alkaline Phosphatase 117 12/24/22 13:40: WBC 8.40, Hgb 13.6, Hct 40.5, Plt Count 327 - Problems (1) COPD exacerbation Onset Date: 04/16/18 Current Visit: No Status: Acute Plan: Patient is 67 years of age admitted with COPD exacerbation and acute respiratory distress smoking 4 years ago uses Incruse and Advair at home [address] scan chest x-ray is clear slightly worsening renal function changed to p.o. prednisone continue with Zithromax bronchodilators try high flow or BiPAP vital signs stable oxygenation satisfactory on 2 L
[2022-12-25] MEDS: levoFLOXacin 250 MG TAB PO SCH (13:34)
[2022-12-25] MEDS: predniSONE 20 MG TAB PO SCH (21:04)
[2022-12-25] MEDS: ALPRAZOLAM 0.25 MG TABLET PO SCH (21:05)
[2022-12-26] MEDS: NA CHLORIDE 0.9% 1,000 ML IV SCH ×2 (03:00→12:17)
--- NOTE | 2022-12-26 03:02 | HP ---
Date of Admission: 12/25/2022 Chief Complaint: Shortness of breath. History Of Present Illness: This is a 67-year-old very pleasant female patient who came into emergency room with 2 to 3 days' history of shortness of breath. Denies any fever, chills, nausea, or vomiting. No chest pain. After she was evaluated in the emergency room yesterday afternoon, she was admitted to the hospital with acute exacerbation of COPD. The patient's chest x-ray done in the emergency room showed changes of mild pulmonary edema and 1 dose of IV diuretic therapy was given to her in the emergency room yesterday. This morning when I saw her, she was sitting at bedside, not feeling good. Reported that she has not had any sleep in last 2 days and her entire body was aching and she really wanted something this morning to help her relax and get some rest as that seems to be her biggest concern along with shortness of breath. Allergies: CODEINE, CEFUROXIME, AND TAPE. Medications: List reviewed. Review of Systems: Respiratory: As mentioned above. Constitutional: As mentioned above. All other systems reviewed and negative. Social History: Longstanding history of smoking and she quit smoking in 2019. Use of alcohol negative. Family History: Significant for diabetes and coronary artery disease. Past Medical History: Significant for COPD, gastroesophageal reflux disease, hyperlipidemia, osteoporosis, and chronic kidney disease stage 3. Past Surgical History: Hysterectomy, oophorectomy, appendectomy and cholecystectomy. Physical Examination: Vital Signs: Temperature 98.3, pulse 102, respiratory rate 20, blood pressure 144/77, and oxygen saturation 94% on 2 L nasal cannula oxygen this morning. Height 5 feet 2 inches, weight 230 pounds. General: Awake, alert, oriented, not in distress. HEENT: Head atraumatic, normocephalic. Conjunctivae nonerythematous. Sclerae white. Mouth, no thrush or edema noted. Ears/Nose, no mass, lesion, discharge noted. Neck: Supple. No JVD, lymph nodes, bruit, thyromegaly noted. Lungs: Bilateral good equal air entry. Clear to auscultation. No rhonchi. No rales. Heart: Normal heart sounds, no murmur or gallop. Abdomen: Soft, bowel sounds normal. No guarding, rigidity, tenderness, mass, hepatosplenomegaly, distention, or bruit noted. Extremities: No leg edema. No calf tenderness. Skin: No rash, ulcer, cellulitis. Lymphatics: No lymph node enlargement in neck, supraclavicular, infraclavicular region. Neuro: No focal neurological deficit. Chest: Unremarkable. External Genitalia: Deferred. Rectal: Deferred. Laboratory Data: Yesterday white count was 8.4, hemoglobin 13.6, and platelets 327. Today white count is 7.8, hemoglobin 14, and platelets 316. Yesterday sodium was 136, potassium 3.6, chloride 105, bicarb 28, BUN 13, creatinine 1.18, and glucose 116. Liver function tests unremarkable. Today sodium is 132, potassium 3.3, chloride 101, bicarb 23, BUN 18, creatinine 1.57, and glucose 186. Yesterday troponin 167. Troponin 6.9 and proBNP 167. Chest x-ray shows mild pulmonary edema. CAT scan of the chest per PE protocol with no evidence of pulmonary embolism. Impression: 1. Acute exacerbation of chronic obstructive pulmonary disease. 2. Pulmonary edema. 3. Acute kidney injury. 4. Gastroesophageal reflux disease. 5. Hyperlipidemia. 6. Osteoporosis. 7. Chronic kidney disease, stage 3a. Plan: Admit the patient to hospital for further evaluation and management of this problem. The patient is appropriate for inpatient and is expected to spend 2 midnights in hospital. We will continue nebulizer treatment, albuterol and Atrovent, which were ordered every 4 hours; IV steroid, which was started yesterday; and IV Zithromax. We will also add Dulera inhaler per order. Request consultation from tire beader maker, Dr. Quintero for pulmonary edema. It could be very well due to diastolic dysfunction. We will go ahead and get an echocardiogram with Doppler and consult Cardiology. DVT prophylaxis will be given using Lovenox per order. I have ordered 1 dose of alprazolam 0.25 mg this morning and starting tonight, we will give it to her at bedtime. We will get an echo with Doppler for left ventricular ejection fraction evaluation. Go ahead and give her careful IV fluid hydration and we will see her tomorrow for followup. Details and plan of treatment discussed with her. KIT/MODL Voice ID: [id number] CHEO
[2022-12-26] MEDS: ALBUTEROL 2.5 MG/3 ML NEB SOL NEB SCH ×6 (03:10→23:30)
[2022-12-26] MEDS: IPRATROPIUM BROM 0.5MG/2.5ML NEB SCH ×6 (03:10→23:30)
[2022-12-26 04:50] LABS: Potassium 3.7 mEq/L (3.5-5.1)
[2022-12-26] MEDS: predniSONE 20 MG TAB PO SCH ×2 (08:19→21:17)
[2022-12-26] MEDS: levoFLOXacin 250 MG TAB PO SCH (08:19)
[2022-12-26] MEDS: ENOXAPARIN 40 MG/0.4 ML SQ SCH (08:20)
[2022-12-26] MEDS: DULERA 200/5 (MOMETASONE/FORMOTEROL) INHALER IH SCH ×2 (08:20→21:00)
[2022-12-26] MEDS: ARFORMOTEROL TARTRATE 15 MCG/2 ML VIAL.NEB NEB SCH ×2 (08:30→19:55)
[2022-12-26] MEDS: AZITHROMYCIN IV 250 MG in NA CHLORIDE 0.9% 250 ML IVPB SCH (08:43)
--- NOTE | 2022-12-26 08:47 | ECHO ---
HEIGHT: 5 ft 2 in WEIGHT: 230 lb 0 oz DATE OF STUDY: 12/25/[address]: Ramone Ambriz MD 2-DIMENSIONAL: YES M.MODE: YES DOPPLER: YES COLOR FLOW: YES TDS: YES PORTABLE: YES DEFINITY: BUBBLE STUDY: DIAGNOSIS: CONGESTIVE HEART FAILURE CARDIAC HISTORY: CATHERIZATION: SURGERY: PROSTHETIC VALVE: PACEMAKER: MEASUREMENTS (cm) DIASTOLIC (NORMALS) SYSTOLIC (NORMALS) IVSd 0.8 (0.6-1.2) LA Diam 2.9 (1.9-4.0) LVEF 60% LVIDd 3.6 (3.5-5.7) LVIDs 2.5 (2.0-3.5) %FS 31% LVPWd 1.0 (0.6-1.2) Ao Diam 2.4 (2.0-3.7) 2 DIMENSIONAL ASSESSMENT: RIGHT ATRIUM: NORMAL LEFT ATRIUM: NORMAL RIGHT VENTRICLE: NORMAL LEFT VENTRICLE: NORMAL TRICUSPID VALVE: NORMAL MITRAL VALVE: NORMAL PULMONIC VALVE: NORMAL AORTIC VALVE: NORMAL PERICARDIAL EFFUSION: NONE AORTIC ROOT: NORMAL LEFT VENTRICULAR WALL MOTION: DECREASED LEFT VENTRICULAR COMPLIANCE DOPPLER/COLOR FLOW: NORMAL COMMENTS: 1. DECREASED LEFT VENTRICULAR COMPLIANCE. 2. TECHNICALLY DIFFICULT STUDY 3. DIASTOLIC DYSFUNCTION 4. NORMAL EJECTION FRACTION TECHNOLOGIST: RASHAD MENDEZ
--- NOTE | 2022-12-26 12:17 | P.PN ---
Subjective Date of Service: 12/26/22 Chief Complaint: Shortness of breath Subjective: Improving (Patient is slightly better still very short of breath at rest) Review of Systems General: Weakness Respiratory: Shortness of Breath Physical Examination - Vital Signs Temperature: 98.1 F Blood Pressure: 145/69 Pulse: 93 Respirations: 28 Pulse Ox (%): 92 - Physical Exam General: Alert, Oriented x3, Mild distress Respiratory: Clear to auscultation bilaterally Cardiovascular: No edema, Regular rate/rhythm, Normal S1 S2 - Studies Laboratory Data (last 24 hrs) 12/26/22 04:05: Sodium 134 L, Potassium 3.7, BUN 29 H, Creatinine 1.44 H, Glucose 147 H Assessment And Plan - Current Problems (Diagnosis) (1) COPD exacerbation Onset Date: 04/16/18 Current Visit: No Status: Acute Plan: Patient is somewhat better still short of breath renal function is still abnormal although is improved somewhat patient is on maximal bronchodilator therapy with nebs every 4 and prednisone repeat chest x-ray ordered (2) Diastolic heart failure Current Visit: Yes Status: Acute Plan: Presumed recommend DC IV fluids continue with low-dose diuretics echocardiogram diastolic dysfunction Qualifiers: Heart failure chronicity: acute on chronic Qualified Code(s): I50.33 - Acute on chronic diastolic (congestive) heart failure
--- NOTE | 2022-12-26 14:23 | RAD REPORT ---
EXAM DESCRIPTION: RADChest Single View12/26/2022 1:49 pm CLINICAL HISTORY: Respiratory distress COMPARISON: Chest Single View dated 12/24/2022; Chest Pa And Lat (2 Views) dated 01/06/2019; Chest Pa A nd Lat (2 Views) dated 04/15/2018; Chest Single View dated 08/31/2016 TECHNIQUE: Portable AP view of the chest. FINDINGS: Partial improvement of central and basilar interstitial prominence especially on the right . No new focal airspace opacities. No pneumothorax or effusion. The cardiomediastinal contours are un remarkable. IMPRESSION: Improving changes of suspected pulmonary edema as above.
[2022-12-26] MEDS: ALPRAZOLAM 0.25 MG TABLET PO SCH (21:17)
[2022-12-27] MEDS: IPRATROPIUM BROM 0.5MG/2.5ML NEB SCH ×4 (03:05→17:50)
[2022-12-27] MEDS: ALBUTEROL 2.5 MG/3 ML NEB SOL NEB SCH ×4 (03:05→17:50)
--- NOTE | 2022-12-27 05:03 | EKG ---
Test Date: 2022-12-24 Test Time: 12:37:55 Hospital Pharmacist: PAT MEASUREMENT RESULTS: Intervals: Rate: 99 AR: 128 QRSD: 72 QT: 352 QTc: 451 Hominy: P: 81 AR: 128 QRS: 60 T: 54 INTERPRETIVE STATEMENTS: Normal sinus rhythm Nonspecific ST and T wave abnormality Abnormal ECG Compared to ECG 08/31/2016 06:28:38 ST (T wave) deviation now present T-wave abnormality no longer present Electronically Signed On 12-27-22 04:55:20 CDT by Jt Lee
[2022-12-27] MEDS: NA CHLORIDE 0.9% 1,000 ML IV SCH (06:50)
--- NOTE | 2022-12-27 07:55 | PN ---
Date of Progress Note: 12/26/2022 Subjective: The patient was seen this morning for followup. No new complaints or problems reported by the patient. She did get some sleep last night. Overall, she feels somewhat better this morning compared to yesterday. Objective: Vital Signs: Reviewed. HEENT: Unremarkable. Lungs: Bilateral good equal entry. Presence of some wheezing noted in both lung lazaro. Not using accessory muscles of respiration. Heart: Sounds normal. Abdomen: Soft. Bowel sounds normal. No guarding, rigidity, tenderness, distention. Extremities: No leg edema. Impression: 1.Acute exacerbation of chronic obstructive pulmonary disease. 2.Pulmonary edema. Plan: We will go ahead and continue to follow with press feeder broomcorn, Dr. Quintero. We will go ahead an d follow up with block feeder this morning. Alteration Worker, Dr. Lee to evaluate her and the patien t's echocardiogram has shown normal ejection fraction, so likely reason for mild pulmonary edema is d iastolic dysfunction due to underlying COPD exacerbation. We will continue to treat her COPD exacerb ation with oxygen, steroid, nebulizer treatment, inhaler as well as antibiotics per current order. T he patient currently is on high-flow oxygen per nasal cannula and will continue to follow with Dr. Armando luke. I will see her tomorrow for followup. KIT/MODL Voice ID: [id number] Report ID: [id number]
[2022-12-27] MEDS: ARFORMOTEROL TARTRATE 15 MCG/2 ML VIAL.NEB NEB SCH (08:20)
[2022-12-27] MEDS: DULERA 200/5 (MOMETASONE/FORMOTEROL) INHALER IH SCH (08:59)
[2022-12-27] MEDS: levoFLOXacin 250 MG TAB PO SCH (09:00)
[2022-12-27] MEDS: predniSONE 20 MG TAB PO SCH (09:00)
[2022-12-27] MEDS: ENOXAPARIN 40 MG/0.4 ML SQ SCH (09:00)
[2022-12-27] MEDS: AZITHROMYCIN IV 250 MG in NA CHLORIDE 0.9% 250 ML IVPB SCH (09:00)
--- NOTE | 2022-12-27 10:46 | CON ---
Date of Consultation: 12/26/[address] Ambriz on 12/24/2022. The patient was seen on 12/26/2022. Reason For Consultation: Heart failure, pneumonia, COPD exacerbation. History Of Present Illness: Ms. James is 67. Came in with dyspnea on exertion, PND, orthopnea, peda l edema. Denied any palpitation. Denied any syncope. Denied any fever or chills. Has had some cou gh. So far has had a CTA of the chest, which was unremarkable, coronary artery disease with minimal in 2019 by heart catheterization. The patient is presently on Xanax, inhalers, Lovenox, Lasix, stero ids and antibiotics, and she is already improving. Allergies: SHE IS ALLERGIC TO CODEINE AND CEFUROXIME. Medications: At home include Ellipta, triamterene with hydrochlorothiazide. Review of Systems: Negative. Social History: Negative. Family History: Noncontributory. Physical Examination: Vital Signs: Stable. She is afebrile. She is in sinus rhythm. HEENT: Negative. Neck: Supple with no bruit. Chest: Actually showed some expiratory wheezing. No rales. Cardiac: Revealed S4 gallops. Regular rhythm and rate. Abdomen: Obese, but benign. Extremities: Revealed trace edema. Diagnostic Data: Fairly unremarkable other than what was listed earlier. Impression And Plan: 1.Chronic obstructive pulmonary disease exacerbation. 2.Possible diastolic congestive heart failure. Echocardiogram was consistent with mild diastolic co ngestive heart failure grade 1, normal ejection fraction. No pulmonary hypertension. She has had mi nimal coronary artery disease in 2019 and I doubt that this has progressed. She does have renal insu fficiency that we need to keep an eye on, maybe consider changing her diuretics as an outpatient. I will discuss that further with Dr. Ambriz. For now, continue her present regimen with antibiotics, inh brielle, Lovenox, Lasix, steroids, and Xanax. She can go home whenever it is okay with Dr. Ambriz. HAYLEY/ISAAC Voice ID: [id number] Report ID: [id number]
[2022-12-27 10:59] VITALS: BP 128/60; TEMP 98.3
[2022-12-27] MEDS ORDERED: levoFLOXacin 500 MG TAB PO SCH (11:00)
--- NOTE | 2022-12-27 12:37 | P.PN ---
Subjective Date of Service: 12/27/22 Chief Complaint: Shortness of breath Subjective: Improving (Patient is doing better no new complaints still becomes short of breath on mild exertion) Review of Systems General: Weakness Respiratory: Shortness of Breath Physical Examination - Vital Signs Temperature: 98.3 F Blood Pressure: 128/60 Pulse: 79 Respirations: 20 Pulse Ox (%): 95 - Physical Exam General: Alert, Mild distress Respiratory: Clear to auscultation bilaterally Cardiovascular: No edema, Normal pulses, Regular rate/rhythm Assessment And Plan - Current Problems (Diagnosis) (1) COPD exacerbation Onset Date: 04/16/18 Current Visit: No Status: Acute Plan: Patient admitted with COPD exacerbation plan for discharge on prednisone and resume Advair and Incruse will evaluate for home O2 agree with possible karen carter today (2) Diastolic heart failure Current Visit: Yes Status: Acute Plan: Presumed underlying underlying diastolic heart failure DC IV fluid Qualifiers: Heart failure chronicity: acute on chronic Qualified Code(s): I50.33 - Acute on chronic diastolic (congestive) heart failure
[2022-12-27 15:43] VITALS: O2SAT 94
--- NOTE | 2022-12-28 05:53 | DS ---
Date of Discharge: 12/27/2022 Disposition: Discharged to go home. Physical Examination: HEENT: Unremarkable. Lungs: Clear to auscultation. Heart: Sounds normal. Abdomen: Soft, bowel sounds normal. No guarding, rigidity, tenderness, distention. Extremities: No leg edema. Laboratory Data: Upon admission; white count 8.4, hemoglobin 13.6, platelets 327, and day after admi ssion; white count 7.8, hemoglobin 14, platelets 360. Chemistry upon admission; sodium 136, potassiu m 3.6, chloride 105, bicarb 28, BUN 13, creatinine 1.18, glucose 116. Liver function tests unremarka ble. ProBNP 167. Troponin 6.9. Day after admission; creatinine was 1.57, potassium 3.3, sodium 132 . Yesterday sodium was 134, potassium 3.7, BUN 29, creatinine 1.44, glucose 147. Echocardiogram rashaad ws normal ejection fraction. Hospital Course: This is a 67-year-old very pleasant female patient, who came into emergency room wi complaints of shortness of breath. Please see dictated H and P for more information. The patient was evaluated in the emergency room, she was admitted to the hospital with acute exacerbation of [employer] D and pulmonary edema. Patient was thought to have pulmonary edema due to diastolic dysfunction lead ing to diastolic congestive heart failure as a result of acute exacerbation of COPD. Cardiology cons ultation was requested from Dr. Lee. Echocardiogram came back showing normal ejection fraction. The patient received 1 dose of diuretic in the emergency room. She had a CT scan of the chest per P E protocol, which was negative for pulmonary embolism. She was given oxygen nebulizer treatments, st eroids, antibiotics and Pulmonary consultation was requested from Dr. Quintero. DVT prophylaxis was given using Lovenox. Overall, her condition improved significantly and today we were able to dischar ge her to go home in stable and improved condition. The patient will need home oxygen and arrangemen ts were made for her to get oxygen at 2 L/minute per nasal cannula. Final Diagnoses: 1.Acute exacerbation of chronic obstructive pulmonary disease. 2.Pulmonary edema. 3.Acute diastolic heart failure. 4.Acute kidney injury. 5.Gastroesophageal reflux disease. 6.Hyperlipidemia. 7.Osteoporosis. 8.Chronic kidney disease, stage 3A. Discharge Medications And Instructions: 1.Continue all prior home medications. 2.Take following new medications: a.Levaquin 500 mg daily for 5 days. b.Prednisone 10 mg take 2 tablets by mouth 2 times a day for 4 days, then 2 tablets daily for 4 days , then 1 tablet daily for 4 days, then half tablet daily for 4 days, then stop. 3.Follow up at my office next week. 4.Use oxygen 2 L/minute per nasal cannula. 5.Follow with Dr. Quintero in 2 weeks. KIT/MODL Voice ID: [id number] Report ID: [id number]
[2022-12-28] MEDS ORDERED: levoFLOXacin 500 MG TAB PO SCH (09:00)
== END 2022-12-27 18:29 | disposition home or self-care (01) | DRG 190 ==
LOC: ER 12:11 → ERHOLD 15:10 → INTOOBSV 15:10 → OBSVTOIN 15:10 → 2ND 16:17 → OBSVTOIN 12-26 07:21
PROVIDERS: ADMIT Internal Medicine; ATTEND Internal Medicine
PROC: 5A09457 Assistance with Respiratory Ventilation, 24-96 Consecutive Hours, Continuous Positive Airway Pressure (ICD-10-PCS; principal; 2022-12-25)
DX: J44.1 Chronic obstructive pulmonary disease with (acute) exacerbation (principal); I50.33 Acute on chronic diastolic (congestive) heart failure; E78.5 Hyperlipidemia, unspecified; N18.31 Chronic kidney disease, stage 3a; M81.0 Age-related osteoporosis without current pathological fracture; K21.9 Gastro-esophageal reflux disease without esophagitis; R09.02 Hypoxemia; Z88.5 Allergy status to narcotic agent; Z90.49 Acquired absence of other specified parts of digestive tract; Z79.01 Long term (current) use of anticoagulants; Z87.891 Personal history of nicotine dependence; Z90.710 Acquired absence of both cervix and uterus; Z91.048 Other nonmedicinal substance allergy status; Z79.899 Other long term (current) drug therapy
CPT/HCPCS: 36415; 71045; 71275; 80048; 80053; 83880; 84484; 85025; 93005; 93306; 94002; 94003; 94640; 94760; 96374; 96375; 97161; 97530; 99285; G0378; J1650; J1940; J2920; J2930; J3535; J7030; J7050; J7512; J7605; J7613; J7644; Q9967

== ENCOUNTER 2023-06-21 11:10 | Emergency (ER) | payer OTHER ==
--- NOTE | 2023-06-21 12:15 | RAD REPORT ---
EXAM DESCRIPTION: RAD - Chest Single View - 06/21/2023 12:06 pm CLINICAL HISTORY: COPD COMPARISON: Chest Single View dated 12/26/2022; Chest Single View dated 12/24/2022; Chest Pa And Lat ( 2 Views) dated 01/06/2019; Chest Pa And Lat (2 Views) dated 04/15/2018 FINDINGS: Lines: None. Lungs: Diffuse prominence of the pulmonary vasculature. This is similar to prior. Pleural: No significant pleural effusions or pneumothorax. Cardiac: The heart size is within normal limits. Mediastinum: Within normal limits. Bones: No acute fractures. Other: None IMPRESSION: Prominence of the pulmonary vasculature remains similar. This could reflect mild edema.
[2023-06-21] MEDS ORDERED: METHYLPREDNISOLONE 125 MG INJ ONE (12:31)
[2023-06-21] MEDS ORDERED: IPRATROPIUM BROM 0.5MG/2.5ML ONE (12:31)
[2023-06-21] MEDS ORDERED: ALBUTEROL 2.5 MG/3 ML NEB SOL ONE (12:31)
[2023-06-21 12:48] LABS: SARS-CoV-2 Antigen Rapid Res Negative (Negative)
[2023-06-21 12:58] LABS: Absolute Lymphocytes (CBC) 1.7 K/uL (0.7-4.9); Hematocrit 38.3 % (36.0-45.0); MCV 89.1 fL (80-100); MPV 8.3 fL (7.6-11.3); Platelets 317 thou/uL (152-406)
[2023-06-21 13:10] LABS: Albumin 3.5 g/dL (3.4-5.0); Bilirubin Direct 0.1 mg/dL (0-0.2); Bilirubin Indirect, Calculated 0.5 mg/dL (0.2-0.8); Bilirubin Total 0.6 mg/dL (0.2-1.0); Protein, Total 7.2 g/dL (6.4-8.2); Troponin High Sensitivity 7.1 pg/mL (<58.9)
[2023-06-21 13:11] LABS: Magnesium 2.3 mg/dL (1.6-2.4); Potassium 3.8 mEq/L (3.5-5.1)
--- NOTE | 2023-06-21 13:45 | EDPHYS ---
Physician Documentation [facility] Name: Suma James Age: 68 yrs Sex: Female : 1955 Arrival Date: 06/21/2023 Time: 11:10 Bed 2 Private MD: ED Physician Gallito Hyman HPI: 06/21 12:02 This 68 yrs old Female presents to ER via Wheelchair with complaints of COPD rt Exacerbation, Sore Throat, Chest Pain - Discomfort. 12:02 Patient presents to the ED with about 1 week of sore throat, cough, congestion, rt right-sided chest pain. She reports chills but did not check her temperature. Denies other acute complaints at this time, symptoms are moderate in severity, no other aggravating alleviating factors.. Historical: - Allergies: 11:18 Ceftin; ll1 11:18 Codeine; ll1 11:18 Tape; ll1 - PMHx: 11:18 Chronic obstructive lung disease; ll1 - PSHx: 11:18 Appendectomy; Cholecystectomy; hysterectomy; Tonsillectomy; ll1 - Immunization history:: Adult Immunizations up to date. - Social history:: Smoking status: Patient denies any tobacco usage or history of. - Family history:: not pertinent. ROS: 12:02 Abdomen/GI: Negative for abdominal pain, nausea, vomiting, diarrhea, and constipation, rt MS/Extremity: Negative for injury and deformity, Skin: Negative for injury, rash, and discoloration, Neuro: Negative for headache, weakness, numbness, tingling, and seizure, Psych: Negative for depression, anxiety, suicide ideation, homicidal ideation, and hallucinations, 12:02 Constitutional: Positive for body aches, chills, 12:02 Cardiovascular: Positive for chest pain, Negative for edema, 12:02 Respiratory: Positive for cough, shortness of breath, Exam: 12:02 Constitutional: This is a well developed, well nourished patient who is awake, alert, rt and in no acute distress. Head/Face: Normocephalic, atraumatic. Chest/axilla: Normal chest wall appearance and motion. Nontender with no deformity. No lesions are appreciated. Cardiovascular: Regular rate and rhythm with a normal S1 and S2. No gallops, murmurs, or rubs. Normal PMI, no JVD. No pulse deficits. Respiratory: Lungs have equal breath sounds bilaterally, clear to auscultation and percussion. No rales, rhonchi or wheezes noted. No increased work of breathing, no retractions or nasal flaring. Abdomen/GI: Soft, non-tender, with normal bowel sounds. No distension or tympany. No guarding or rebound. No evidence of tenderness throughout. Skin: Warm, dry with normal turgor. Normal color with no rashes, no lesions, and no evidence of cellulitis. MS/ Extremity: Pulses equal, no cyanosis. Neurovascular intact. Full, normal range of motion. Neuro: Awake and alert, GCS 15, oriented to person, place, time, and situation. Cranial nerves II-XII grossly intact. Motor strength 5/5 in all extremities. Sensory grossly intact. Cerebellar exam normal. Normal gait. Psych: Awake, alert, with orientation to person, place and time. Behavior, mood, and affect are within normal limits. 12:02 ENT: Mild posterior pharyngeal erythema without exudates tonsillar hypertrophy, he was midline. 12:02 ECG was reviewed by the Attending Physician. Vital Signs: 11:24 BP 133 / 72 RA Sitting (auto/reg); Pulse 72 MON; Resp 20 S; Temp 97.7(O); Pulse Ox 98% em1 on R/A; Weight 106.59 kg (R); Height 5 ft. 3 in. (R); 12:00 BP 116 / 61; Pulse 68; Resp 22; Pulse Ox 100% on R/A; db 13:30 BP 126 / 55; Pulse 92; Resp 15; Pulse Ox 97% ; ll1 11:24 Body Mass Index 41.63 (106.59 kg, 160.02 cm) em1 MDM: 11:24 Patient medically screened. rt 14:01 Differential diagnosis: Pneumonia, viral syndrome, pneumothorax, COPD exacerbation, rt CHF. Data reviewed: vital signs, nurses notes, lab test result(s), EKG, radiologic studies. Consideration of Admission/Observation Escalation of care including admission/observation considered. I considered the following discharge prescriptions or medication management in the emergency department Medications were administered in the Emergency Department. See MAR. Independent interpretation of the following test(s) in the Emergency Department X-Ray: My interpretation is No pneumonia seen on interpretation of x-ray images. Test considered but Not performed: CT: Low suspicion for PE, CT angiogram not indicated. Care significantly affected by the following chronic conditions: Chronic Obstructive Pulmonary Disease. Counseling: I had a detailed discussion with the patient and/or guardian regarding the historical points, exam findings, and any diagnostic results supporting the discharge/admit diagnosis, lab results, radiology results, the need for outpatient follow up, to return to the emergency department if symptoms worsen or persist or if there are any questions or concerns that arise at home. Response to treatment: the patient's symptoms have markedly improved after treatment. 06/21 11:35 Order name: Basic Metabolic Panel; Complete Time: 13:19 rt 06/21 11:35 Order name: CBC with Diff; Complete Time: 13:19 rt 06/21 11:35 Order name: LFT's; Complete Time: 13:19 rt 06/21 11:35 Order name: Magnesium; Complete Time: 13:19 rt 06/21 11:35 Order name: NT PRO-BNP; Complete Time: 13:19 rt 06/21 11:35 Order name: Troponin HS; Complete Time: 13:19 rt 06/21 11:35 Order name: Influenza Screen (a \T\ B); Complete Time: 13:19 rt 06/21 11:35 Order name: SARS RAPID; Complete Time: 13:19 rt 06/21 11:35 Order name: XRAY Chest (1 view); Complete Time: 12:33 rt 06/21 11:35 Order name: EKG; Complete Time: 11:36 rt 06/21 11:35 Order name: Cardiac monitoring; Complete Time: 12:07 rt 06/21 11:35 Order name: EKG - Nurse/Tech; Complete Time: 12:07 rt 06/21 11:35 Order name: IV Saline Lock; Complete Time: 12:07 rt 06/21 11:35 Order name: Labs collected and sent; Complete Time: 12:07 rt 06/21 11:35 Order name: O2 Per Protocol; Complete Time: 12:07 rt 06/21 11:35 Order name: O2 Sat Monitoring; Complete Time: 12:07 rt EC:02 Rate is 63 beats/min. Rhythm is regular, Normal Sinus Rhythm with No ectopy. QRS [place] rt is Normal. [place] interval is normal. QRS interval is normal. QT interval is normal. No Q waves. T waves are Normal. No ST changes noted. Interpreted by me. Administered Medications: 12:25 Drug: DuoNeb Nebulize (3:1) (2.5 mg - 0.5 mg) 3 ml Nebulizer once Route: Nebulizer; db 14:01 Follow up: Response: No adverse reaction db 12:25 Drug: MethylPrednisoLONE IVP 125 mg IVP once Route: IVP; Site: right forearm; db 14:01 Follow up: Response: No adverse reaction db Disposition Summary: 06/21/23 13:44 Discharge Ordered Notes: Location: Home rt Problem: an acute exacerbation rt Symptoms: have improved rt Condition: Stable rt Diagnosis - COPD/ Chronic obstructive pulmonary disease with (acute) exacerbation rt Followup: rt - With: Private Physician - When: 2 - 3 days - Reason: Discharge Instructions: - Discharge Summary Sheet rt - Chronic Obstructive Pulmonary Disease rt Forms: - Medication Reconciliation Form rt - Thank You Letter rt - Antibiotic Education rt - Prescription Opioid Use rt - Patient Portal Instructions rt - Leadership Thank You Letter rt Prescriptions: - albuterol sulfate 2.5 mg /3 mL (0.083 %) Inhalation Solution for Nebulization - nebulize 3 milliliter INHALATION route every 3 hours as needed for shortness of rt breath or wheezing; 120 milliliter; Refills: 0, Product Selection Permitted - Prednisone 20 mg Oral Tablet - take 2 tablets ORAL route once daily for 5 days; 10 tablet; Refills: 0, Product rt Selection Permitted Signatures: Dispatcher [employer] Elaina Jackson RN RN ll1 Analia Langston RN RN db Gallito Hyman MD MD rt
--- NOTE | 2023-06-21 13:45 | ER ---
Nurse's Notes [facility] Name: Suma James Age: 68 yrs Sex: Female : 1955 Arrival Date: 06/21/2023 Time: 11:10 Bed 2 Private MD: Diagnosis: COPD/ Chronic obstructive pulmonary disease with (acute) exacerbation Presentation: 06/21 11:19 Chief complaint: Patient states: Cough, SOB, sore throat, CP. Coronavirus screen: ll1 Vaccine status: Patient reports receiving the 2nd dose of the covid vaccine. Client denies travel out of the [place] in the last 14 days. congestion, cough unrelated to allergies, difficulty breathing, shortness of breath, Client presents with at least one sign or symptom that may indicate coronavirus-19. Standard/surgical mask placed on the client. Ebola Screen: Patient denies travel to an Ebola-affected area in the 21 days before illness onset. Initial Sepsis Screen: Does the patient meet any 2 criteria? No. Patient's initial sepsis screen is negative. Does the patient have a suspected source of infection? Yes: Productive cough/pneumonia. Risk Assessment: Do you want to hurt yourself or someone else? Patient reports no desire to harm self or others. 11:19 Method Of Arrival: Wheelchair ll1 11:19 Acuity: ARIEL 3 ll1 14:06 Onset of symptoms was June 21, 2023. db Triage Assessment: 11:19 General: Appears uncomfortable, Behavior is calm, cooperative, appropriate for age. ll1 Pain: Complains of pain in chest. Cardiovascular: Reports chest pain, shortness of breath. Respiratory: Reports shortness of breath cough that is pain with cough. Historical: - Allergies: 11:18 Ceftin; ll1 11:18 Codeine; ll1 11:18 Tape; ll1 - PMHx: 11:18 Chronic obstructive lung disease; ll1 - PSHx: 11:18 Appendectomy; Cholecystectomy; hysterectomy; Tonsillectomy; ll1 - Immunization history:: Adult Immunizations up to date. - Social history:: Smoking status: Patient denies any tobacco usage or history of. - Family history:: not pertinent. Screenin:03 [facility] ED Fall Risk Assessment (Adult) History of falling in the last 3 months, db including since admission No falls in past 3 months (0 pts) Confusion or Disorientation No (0 pts) Intoxicated or Sedated No (0 pts) Impaired Gait No (0 pts) Mobility Assist Device Used No (0 pt) Altered Elimination No (0 pt) Score/Fall Risk Level 0 - 2 = Low Risk Oriented to surroundings, Maintained a safe environment. Abuse screen: Denies threats or abuse. Denies injuries from another. Nutritional screening: No deficits noted. Tuberculosis screening: No symptoms or risk factors identified. Assessment: 12:15 Reassessment: Patient appears in no apparent distress at this time. Patient and/or db family updated on plan of care and expected duration. Pain level reassessed. Patient is alert, oriented x 3, equal unlabored respirations, skin warm/dry/pink. 13:29 Reassessment: No changes from previously documented assessment. Patient and/or family ll1 updated on plan of care and expected duration. Pain level reassessed. 14:02 Reassessment: Patient appears in no apparent distress at this time. No changes from db previously documented assessment. Patient and/or family updated on plan of care and expected duration. Pain level reassessed. Patient is alert, oriented x 3, equal unlabored respirations, skin warm/dry/pink. Patient states feeling better. Patient states symptoms have improved. General: Appears in no apparent distress. comfortable, Behavior is calm, cooperative, quiet. Neuro: Level of Consciousness is awake, alert, obeys commands, Oriented to person, place, time, situation, Speech is normal. Respiratory: Airway is patent Respiratory effort is even, unlabored, Respiratory pattern is regular, symmetrical, Breath sounds are clear bilaterally. EENT: Throat is clear is pink. Vital Signs: 11:24 BP 133 / 72 RA Sitting (auto/reg); Pulse 72 MON; Resp 20 S; Temp 97.7(O); Pulse Ox 98% em1 on R/A; Weight 106.59 kg (R); Height 5 ft. 3 in. (R); 12:00 BP 116 / 61; Pulse 68; Resp 22; Pulse Ox 100% on R/A; db 13:30 BP 126 / 55; Pulse 92; Resp 15; Pulse Ox 97% ; ll1 11:24 Body Mass Index 41.63 (106.59 kg, 160.02 cm) em1 ED Course: 11:13 Patient arrived in ED. im 11:18 Gallito Hyman MD is Attending Physician. rt 11:18 Arm band placed on Patient placed in an exam room, on a stretcher. ll1 11:19 Triage completed. ll1 12:08 XRAY Chest (1 view) In Process Unspecified. EDMS 12:11 Analia Langston, RN is Primary Nurse. db 14:03 Patient has correct armband on for positive identification. Bed in low position. Call db light in reach. Side rails up X 1. Client placed on continuous cardiac and pulse oximetry monitoring. NIBP monitoring applied. Warm blanket given. 14:03 No provider procedures requiring assistance completed. IV discontinued, intact, db bleeding controlled, No redness/swelling at site. 14:05 Provided Education on: DISCHARGE. db Administered Medications: 12:25 Drug: DuoNeb Nebulize (3:1) (2.5 mg - 0.5 mg) 3 ml Nebulizer once Route: Nebulizer; db 14:01 Follow up: Response: No adverse reaction db 12:25 Drug: MethylPrednisoLONE IVP 125 mg IVP once Route: IVP; Site: right forearm; db 14:01 Follow up: Response: No adverse reaction db Medication: 14:03 VIS not applicable for this client. db Outcome: 13:44 Discharge ordered by MD. rt 14:03 Discharged to home ambulatory, with family, with significant other, db 14:03 Condition: stable 14:03 Discharge instructions given to patient, Instructed on discharge instructions, follow up and referral plans. Prescriptions given X 2, 14:06 Patient left the ED. db Signatures: Dispatcher [employer] [facility] Garrett Keyes em1 Elaina Marlow RN RN 1 Analia Langston, RN RN db Gallito Hyman MD MD rt Jessenia Collins im
[2023-06-21 14:11] VITALS: TEMP 97.7
[2023-06-21 14:13] VITALS: BP 126/55; O2SAT 97
--- NOTE | 2023-06-22 14:25 | EKG ---
Test Date: 2023-06-21 Test Time: 11:54:31 Sap Ppm Consultant: JOSÉ ANTONIO MEASUREMENT RESULTS: Intervals: Rate: 63 AL: 140 QRSD: 88 QT: 428 QTc: 437 Raymond: P: 76 AL: 140 QRS: 76 T: 72 INTERPRETIVE STATEMENTS: Normal sinus rhythm Normal ECG Compared to ECG 12/24/2022 12:37:55 ST (T wave) deviation no longer present Electronically Signed On 06-22-23 14:22:27 MANAGER RN CASE by Keven Pruett
== END 2023-06-21 14:06 | disposition home or self-care (01) ==
LOC: ER 11:10
DX: J44.1 Chronic obstructive pulmonary disease with (acute) exacerbation (principal); Z11.52 Encounter for screening for COVID-19; Z88.1 Allergy status to other antibiotic agents; Z88.5 Allergy status to narcotic agent; Z91.048 Other nonmedicinal substance allergy status
CPT/HCPCS: 93005; 85025; 80048; 36415; 83735; 80076; 84484; 83880; 87804 ×2; 71045; 94640; 96374; 99284; 87811; J7613; J7644; J2930

== ENCOUNTER 2025-03-24 09:44 | Observation (INO) | payer OTHER ==
--- OUTSIDE RECORDS SUMMARY | 2025-03-24 09:48 | XMS REPORT | Continuity of Care Document ---
Author Name Unknown Address [address] [place] [address] [address] [place] [address] [facility] Address [address] [facility]. [address] [place] [address] Care Team Providers Care Blood Bank Manager Name Role Phone Leon MARIN, Jagjit Taylor Primary Care Physician Allergies, Adverse Reactions, Alerts Allergy Name Allergy Type Status Severity Reaction(s) Onset Date Inactive Date Treating Clinician Comments Source codine (Not Checked) Propensi ty to adverse reaction to drug Active 09-01 00:00: 00 Jason Angel Medications Ordered Medication Name Filled Medication Name Start Date Stop Date Current Medication? Ordering Clinician Indication Dosage Frequency Signature (SIG) Comments Components Source Incruse Ellipta 62.5 mcg/actuati on powder for inhalation 01-26 00:00: 00 Yes 1mcg/ac tuation Jason Angel Advair Diskus 250 mcg-50 mcg/dose powder for inhalation 01-26 00:00: 00 Yes 1mcg/do se Jason Angel hydroxyzine HCl 25 mg tablet 01-26 00:00: 00 Yes 1mg Jason Angel Daliresp 500 mcg tablet 5-08 00:00: 00 Yes 1mcg Jason Angel hydroxyzine HCl 25 mg tablet 4-09 00:00: 00 Yes 1mg Jason Angel Singulair 10 mg tablet 3-12 00:00: 00 Yes 1mg Jason Angel Zithromax 250 mg tablet 3-12 00:00: 00 Yes 1mg Jason Angel formoterol fumarate 20 mcg/2 mL solution for nebulizatio n 09-01 00:00: 00 Yes mcg/2 mL Jason Angel spironolact one 25 mg tablet 09-01 00:00: 00 Yes 1mg Jason Angel Lasix 40 mg tablet 09-01 00:00: 00 Yes 1mg Jason Angel Vitamin D3 50 mcg (2,000 unit) tablet 09-01 00:00: 00 Yes 1(2,000 unit) Jason Angel prednisone 10 mg tablet 08-19 00:00: 00 Yes mg Jason Angel budesonide 0.5 mg/2 mL suspension for nebulizatio n 2023-08 00:00: 00 Yes mg/2 mL Jason Angel triamterene 37.5 mg-hydrochl orothiazide 25 mg tablet 2023-08 00:00: 00 Yes mg Jason Angel albuterol sulfate HFA 90 mcg/actuati on aerosol inhaler 2023-08 00:00: 00 Yes mcg/act uation Jason Angel Vital Signs Vital Name Observation Time Observation Value Comments S ource BP Systolic 2025-01-26 13:06:00 128 mm[Hg] Step hen F Stanley BP Diastolic 2025-01-26 13:06:00 71 mm[Hg] Jose Guadalupe phen F Stanley Weight Measured 2025-01-26 13:06:00 257.00 pounds Jason Angel Height Measured 2025-01-26 13:06:00 63.60 inches Jason Angel Body Temperature 2025-01-26 13:06:00 98.30 degrees Jason Angel Heart Rate 2025-01-26 13:06:00 82.00 /min Wendy en F Stanley Respiratory Rate 2025-01-26 13:06:00 17.00 /min Jasonelyssa Angel BP Systolic 2024-12-11 13:05:00 129 mm[Hg] Step hen F Stanley BP Diastolic 2024-12-11 13:05:00 78 mm[Hg] Jose Guadalupe phen F Stanley Weight Measured 2024-12-11 13:05:00 245.00 pounds Jason Angel Height Measured 2024-12-11 13:05:00 63.60 inches Jason Angel Body Temperature 2024-12-11 13:05:00 98.70 degrees Jason Angel Heart Rate 2024-12-11 13:05:00 115.00 /min Step hen F Stanley Respiratory Rate 2024-12-11 13:05:00 Jason F Stanley BP Systolic 2024-12-11 13:04:00 Step hen F Stanley BP Diastolic 2024-12-11 13:04:00 Jose Guadalupe phen F Stanley Weight Measured 2024-12-11 13:04:00 Jason F Stanley Height Measured 2024-12-11 13:04:00 Jason F Stanley Body Temperature 2024-12-11 13:04:00 Jason F Stanley Heart Rate 2024-12-11 13:04:00 Wendy en F Stanley Respiratory Rate 2024-12-11 13:04:00 Jason F Stanley BP Systolic 2024-11-12 13:19:00 122 mm[Hg] Step hen F Stanley BP Diastolic 2024-11-12 13:19:00 64 mm[Hg] Jose Guadalupe phen F Stanley Weight Measured 2024-11-12 13:19:00 243.20 pounds Jason F Stanley Height Measured 2024-11-12 13:19:00 63.60 inches Jason F Stanley Body Temperature 2024-11-12 13:19:00 97.40 degrees Jason F Stanley Heart Rate 2024-11-12 13:19:00 78.00 /min Wendy en F Stanley Respiratory Rate 2024-11-12 13:19:00 15.00 /min Jason F Stanley BP Systolic 2024-10-15 14:22:00 110 mm[Hg] Step hen F Stanley BP Diastolic 2024-10-15 14:22:00 72 mm[Hg] Jose Guadalupe phen F Stanley Weight Measured 2024-10-15 14:22:00 241.20 pounds Jsaon F Stanley Height Measured 2024-10-15 14:22:00 63.60 inches Jason F Stanley Body Temperature 2024-10-15 14:22:00 98.30 degrees Jason F Stanley Heart Rate 2024-10-15 14:22:00 79.00 /min Wendy en F Stanley Respiratory Rate 2024-10-15 14:22:00 16.00 /min Jason F Stanley Heart Rate 2024-09-01 14:03:00 73.00 /min Wendy en F Stanley Respiratory Rate 2024-09-01 14:03:00 Jason F Stanley BP Systolic 2024-09-01 14:03:00 111 mm[Hg] Yonny Angel BP Diastolic 2024-09-01 14:03:00 64 mm[Hg] Jose Guadalupe Angel Weight Measured 2024-09-01 14:03:00 245.40 pounds Jason Angel Height Measured 2024-09-01 14:03:00 63.60 inches Jason Angel Body Temperature 2024-09-01 14:03:00 98.40 degrees Jason Angel Encounters Start Date/Time End Date/Time Encounter Type Admission Type Attending [facility] Care Department Encounter ID Source 2025-01-26 13:02:44 2025-01-26 13:02:44 Outpatient SFA SFA [id number] Jason Angel 2025-01-26 00:00:00 2025-01-26 00:00:00 Outpatient Visit SFA [id number] Jason Angel 2024-12-11 13:03:57 2024-12-11 13:03:57 Outpatient SFA SFA [id number] Jason Angel 2024-12-11 00:00:00 2024-12-11 00:00:00 Outpatient Visit SFA [id number] Jason Angel 2024-11-12 13:16:41 2024-11-12 13:16:41 Outpatient SFA SFA [id number] Jason Angel 2024-11-12 00:00:00 2024-11-12 00:00:00 Outpatient Visit SFA SFA [id number] Jason Angel 2024-10-15 14:15:50 2024-10-15 14:15:50 Outpatient SFA SFA [id number] Jason Angel 2024-10-15 00:00:00 2024-10-15 00:00:00 Outpatient Visit SFA SFA [id number] Jason Angel 2024-09-01 13:46:35 2024-09-01 13:46:35 Outpatient SFA SFA [id number] Jason Angel 2024-09-01 00:00:00 2024-09-01 00:00:00 Outpatient Visit SFA SFA [id number] Jason Angel Notes Date/Time Note Provider Source [facility]00 [facility]2025-04-09 [facility]:00:00 [facility]00 [facility]
[2025-03-24 10:35] LABS: Absolute Lymphocytes (CBC) 1.7 K/uL (0.7-4.9); Hematocrit 36.4 % (36.0-45.0); Hemoglobin 12.5 g/dL (12.0-15.0); MCH 29.5 pg (27.0-35.0); MCHC 34.5 g/dL (32.0-36.0); MCV 85.5 fL (80-100); MPV 7.7 fL (7.6-11.3); Nucleated RBC Absolute Count 0.0 (0-0); Nucleated Red Blood Cells % 0.0 % (0-0); RBC Red Blood Cell Count 4.25 M/uL (3.86-4.86); White Blood Count 15.60 thou/uL (4.3-10.9)
[2025-03-24 10:59] LABS: ALT/SGPT 27.0 U/L (13-56); Albumin 3.4 g/dL (3.4-5.0); Albumin/Globulin Ratio 1.0 (1.1-1.8); Alkaline Phosphatase 101.0 U/L (45-117); Anion Gap 8.8 mEq/L (5.0-15.0); BUN Blood Urea Nitrogen 22.0 mg/dL (7-18); Globulin 3.5 g/dL (2.3-3.5); Glucose Level 116.0 mg/dL (74-106)
[2025-03-24 11:00] LABS: AST/SGOT 21.0 U/L (15-37); Potassium 3.8 mEq/L (3.5-5.1)
--- NOTE | 2025-03-24 11:39 | RAD REPORT ---
EXAM:Extremity Nonvascular Complete CLINICAL HISTORY: Right breast pain TECHNIQUE: Sonographic evaluation of retroareolar region and inner lower quadrant right breast perfor med. FINDINGS: Patient complains of pain and redness retroareolar region and lower inner quadrant right breast. Sonographic evaluation demonstrates dilatation of the ducts. The breast tissue appears heterogeneous without visualization of a mass. IMPRESSION: Dilated ducts retroareolar region right breast with heterogeneous tissue which may represent a cellul itis. If the patient's symptoms do not improve despite treatment then follow-up ultrasound would be recomme nded for reassessment.
[2025-03-24] MEDS ORDERED: NA CHLORIDE 0.9% 250 ML ONE (11:48)
[2025-03-24] MEDS ORDERED: NA CHLORIDE 0.9% 1,000 ML ONE (11:48)
[2025-03-24] MEDS ORDERED: VANCOMYCIN 1 GM/VIAL ONE (11:48)
[2025-03-24] MEDS ORDERED: Levofloxacin500mg IV 500 MG/100 ML BAG IV ONE (11:48)
--- NOTE | 2025-03-24 11:56 | ER ---
Nurse's Notes [facility] Name: Suma James Age: 69 yrs Sex: Female : 1955 Arrival Date: 03/24/2025 Time: 09:44 Bed 5 Private MD: Diagnosis: Breast cellulitis, leukocytosis Presentation: 03/24 09:58 Chief complaint: Patient states: R breast pain started 03/22. Started to feel bad with ll1 chills and bilateral leg tenderness yesterday. Coronavirus screen: Client denies travel out of the [place] in the last 14 days. chills, cough unrelated to allergies, fatigue, Client presents with at least one sign or symptom that may indicate coronavirus-19. Standard/surgical mask placed on the client. Ebola Screen: Patient denies travel to an Ebola-affected area in the 21 days before illness onset. Initial Sepsis Screen: Does the patient meet any 2 criteria? No. Patient's initial sepsis screen is negative. Does the patient have a suspected source of infection? No. Patient's initial sepsis screen is negative. Risk Assessment: Do you want to hurt yourself or someone else? Patient reports no desire to harm self or others. Onset of symptoms was March 22, 2025. 09:58 Method Of Arrival: Wheelchair ll1 09:58 Acuity: ARIEL 3 ll1 Triage Assessment: 10:00 General: Appears uncomfortable, Behavior is calm, cooperative, appropriate for age. ll1 Pain: Complains of pain in R breast Pain currently is 10 out of 10 on a pain scale. Quality of pain is described as aching. Musculoskeletal: Reports pain to R breast and bilateral legs. Historical: - Allergies: 09:57 Ceftin; ll1 09:57 Codeine; ll1 09:57 Tape; ll1 09:57 Cefuroxime; ll1 - PMHx: 09:57 Chronic obstructive lung disease; ll1 - PSHx: 09:57 Appendectomy; Cholecystectomy; hysterectomy; Tonsillectomy; ll1 - Immunization history:: Adult Immunizations up to date. - Social history:: Smoking status: Patient/guardian denies using tobacco. Vital Signs: 09:58 BP 133 / 64; Pulse 77; Resp 17; Temp 98.5; Pulse Ox 97% on R/A; Weight 108.41 kg; ll1 Height 5 ft. 3 in. ; Pain 05/15; 09:58 Body Mass Index 42.34 (108.41 kg, 160.02 cm) ll1 09:58 Pain Scale: Adult ll1 ED Course: 09:47 Patient arrived in ED. im 09:48 Anastacio Jackson MD is Attending Physician. sp3 09:49 Arm band placed on Patient placed in an exam room, on a stretcher. ll1 09:50 Lj Chambers, RN is Primary Nurse. bp 10:00 Triage completed. ll1 10:15 Initial lab(s) drawn, by me, sent to lab. First set of blood cultures drawn by me, bp Second set of blood cultures drawn by me. 10:21 Inserted saline lock: 20 gauge in right forearm, using aseptic technique. Blood bp collected. Flushed with 10 mL NS. 11:16 Extremity Nonvascular Complete In Process Unspecified. EDMS 11:55 Carl Ambriz MD is Hospitalizing Provider. sp3 Administered Medications: 12:00 Drug: levofloxacin IVPB 500 mg 100 ml IVPB once over 60 mins Volume: 100 ml; Route: bp IVPB; Infused Over: 60 mins; Site: right forearm; 12:00 Drug: NS 0.9% IV 1000 ml IV at 1000 ml once; to be given as a bolus over 60 minutes bp Route: IV; Rate: 1000 ml; Site: right forearm; 12:50 Drug: vancoMYCIN IVPB 1 grams IVPB once over 2 hrs Route: IVPB; Infused Over: 2 hrs; bp Site: right forearm; Outcome: 11:56 Decision to Hospitalize by Provider. sp3 13:11 Patient left the ED. iw Signatures: Dispatcher [employer] EDMS Luana Nath RN RN Lj Chambers RN RN bp Elaina Marlow RN RN 1 Anastacio Jackson MD MD sp3 Jessenia Collins im
--- NOTE | 2025-03-24 11:56 | EDPHYS ---
Physician Documentation [facility] Name: Suma James Age: 69 yrs Sex: Female : 1955 Arrival Date: 03/24/2025 Time: 09:44 Bed 5 Private MD: ED Physician Anastacio Jackson HPI: 03/24 10:22 This 69 yrs old Female presents to ER via Wheelchair with complaints of Breast Problem sp3 - right pain, Leg Pain. 10:22 69-year-old female with a history of COPD now presents to the ED with chief complaint sp3 right breast pain in the lateral aspect of her breast. She denies any trauma, fever, redness, or any other symptoms. She states she had a diagnostic mammogram performed last year and the "results are in the computer". She denies any headache, fever, URI symptoms, neck pain, chest pain, back pain, shortness of breath, abdominal pain with nausea, vomit, diarrhea, syncope, near syncope, rash, known sick contact, travel history, or any other signs or symptoms on ROS at this time.. Historical: - Allergies: 09:57 Ceftin; ll1 09:57 Codeine; ll1 09:57 Tape; ll1 09:57 Cefuroxime; ll1 - PMHx: 09:57 Chronic obstructive lung disease; ll1 - PSHx: 09:57 Appendectomy; Cholecystectomy; hysterectomy; Tonsillectomy; ll1 - Immunization history:: Adult Immunizations up to date. - Social history:: Smoking status: Patient/guardian denies using tobacco. ROS: 10:23 Constitutional: Negative for fever, chills, and weight loss, Eyes: Negative for injury, sp3 pain, redness, and discharge, Neck: Negative for injury, pain, and swelling, Cardiovascular: Negative for chest pain, palpitations, and edema, Respiratory: Negative for shortness of breath, cough, wheezing, and pleuritic chest pain, Abdomen/GI: Negative for abdominal pain, nausea, vomiting, diarrhea, and constipation, Back: Negative for injury and pain, Neuro: Negative for headache, weakness, numbness, tingling, and seizure, Psych: Negative for depression, anxiety, suicide ideation, homicidal ideation, and hallucinations, Allergy/Immunology: Negative for hives, rash, and allergies, Endocrine: Negative for neck swelling, polydipsia, polyuria, polyphagia, and marked weight changes, 10:23 All other systems are negative, Exam: 10:23 Constitutional: This is a well developed, well nourished patient who is awake, alert, sp3 and in no acute distress. Head/Face: Normocephalic, atraumatic. Eyes: Pupils equal round and reactive to light, extra-ocular motions intact. Lids and lashes normal. Conjunctiva and sclera are non-icteric and not injected. Cornea within normal limits. Periorbital areas with no swelling, redness, or edema. Neck: Trachea midline, no thyromegaly or masses palpated, and no cervical lymphadenopathy. Supple, full range of motion without nuchal rigidity, or vertebral point tenderness. No Meningismus. Cardiovascular: Regular rate and rhythm with a normal S1 and S2. No gallops, murmurs, or rubs. Normal PMI, no JVD. No pulse deficits. Respiratory: Lungs have equal breath sounds bilaterally, clear to auscultation and percussion. No rales, rhonchi or wheezes noted. No increased work of breathing, no retractions or nasal flaring. Abdomen/GI: Soft, non-tender, with normal bowel sounds. No distension or tympany. No guarding or rebound. No evidence of tenderness throughout. Back: No spinal tenderness. No costovertebral tenderness. Full range of motion. Skin: Warm, dry with normal turgor. Normal color with no rashes, no lesions, and no evidence of cellulitis. MS/ Extremity: Pulses equal, no cyanosis. Neurovascular intact. Full, normal range of motion. Neuro: Awake and alert, GCS 15, oriented to person, place, time, and situation. Cranial nerves II-XII grossly intact. Motor strength 5/5 in all extremities. Sensory grossly intact. Cerebellar exam normal. Normal gait. Psych: Awake, alert, with orientation to person, place and time. Behavior, mood, and affect are within normal limits. 10:23 Chest/axilla: Patient has soft tissue breast pain in the right upper and lower quadrants of the breast. No nipple pain or discharge or discoloration noted. No masses palpated. Patient examined with female nurse present in the room.. Vital Signs: 09:58 BP 133 / 64; Pulse 77; Resp 17; Temp 98.5; Pulse Ox 97% on R/A; Weight 108.41 kg; ll1 Height 5 ft. 3 in. ; Pain 05/15; 09:58 Body Mass Index 42.34 (108.41 kg, 160.02 cm) ll1 09:58 Pain Scale: Adult ll1 MDM: 09:49 Medical Screening Exam initiated sp3 10:24 Data reviewed: vital signs, nurses notes, lab test result(s), radiologic studies. ED sp3 course: 6-year-old female with breast pain on the right side. Differential diagnosis includes soft tissue injury, abscess, other mass, or other process. Workup include general labs and breast ultrasound. We will try and obtain her last diagnostic records. Disposition pending workup and patient course. Vital signs are normal.. 11:53 ED course: Patient with cellulitis on ultrasound, leukocytosis and renal insufficiency. sp3 Discussed the case with Dr. Ambriz who will be admitting to the hospital. Due to her allergies we will start with Levaquin and vancomycin.. 03/24 09:57 Order name: Blood Culture Adult (2) sp3 03/24 09:57 Order name: CBC with Diff; Complete Time: 11:03 sp3 03/24 09:57 Order name: CMP; Complete Time: 11:03 sp3 03/24 09:57 Order name: Lactate w/ 2H reflex if indic.; Complete Time: 11:03 sp3 03/24 12:08 Order name: Basic Metabolic Panel EDMS 03/24 12:08 Order name: Basic Metabolic Panel EDMS 03/24 12:08 Order name: CBC with Automated Diff EDMS 03/24 12:08 Order name: CBC with Automated Diff EDMS 03/24 10:02 Order name: Extremity Nonvascular Complete; Complete Time: 11:43 EDMS 03/24 09:57 Order name: IV Saline Lock - Large Bore; Complete Time: 10:20 sp3 03/24 09:57 Order name: Labs collected and sent; Complete Time: 10:20 sp3 03/24 09:57 Order name: Vital Signs; Complete Time: 10:20 sp3 Administered Medications: 12:00 Drug: levofloxacin IVPB 500 mg 100 ml IVPB once over 60 mins Volume: 100 ml; Route: bp IVPB; Infused Over: 60 mins; Site: right forearm; 12:00 Drug: NS 0.9% IV 1000 ml IV at 1000 ml once; to be given as a bolus over 60 minutes bp Route: IV; Rate: 1000 ml; Site: right forearm; 12:50 Drug: vancoMYCIN IVPB 1 grams IVPB once over 2 hrs Route: IVPB; Infused Over: 2 hrs; bp Site: right forearm; Disposition Summary: 03/24/25 11:56 Hospitalization Ordered Notes: Hospitalization Status: Inpatient Admission sp3 Provider: Carl Ambriz Location: Telemetry/[facility] (Inpatient) sp3 Condition: Stable sp3 Problem: an acute exacerbation sp3 Symptoms: have worsened sp3 Bed/Room Type: Standard sp3 Room Assignment: 208(03/24/25 12:16) iw Diagnosis - Breast cellulitis, leukocytosis sp3 Forms: - Medication Reconciliation Form sp3 - SBAR form sp3 - Leadership Thank You Letter sp3 Signatures: Dispatcher [employer] Luana Man RN RN iw Peltier, Brian, RN RN bp Lewis, Lynsay, RN RN [facility] Anastacio Jackson MD MD sp3 Corrections: (The following items were deleted from the chart) 12:16 11:56 sp3 iw
[2025-03-24] MEDS ORDERED: VANCOMYCIN 1.75 GM in NA CHLORIDE 0.9% 500 ML IVPB ONE (13:00)
[2025-03-24] MEDS ORDERED: Levofloxacin500mg IV 500 MG/100 ML BAG IV SCH (13:00)
[2025-03-24] MEDS: ACETAMINOPHEN 500 MG TAB PO PRN (13:31)
[2025-03-24 14:20] VITALS: BMI 42.3
[2025-03-24] MEDS ORDERED: ALBUTEROL 2.5 MG/3 ML NEB SOL NEB PRN (20:51)
[2025-03-24] MEDS: DULERA 200/5 (MOMETASONE/FORMOTEROL) INHALER IH SCH (21:00)
[2025-03-24 21:41] VITALS: O2SAT 95
[2025-03-24] MEDS: IBUPROFEN 600 MG TAB PO SCH (21:58)
[2025-03-25] MEDS: PIPER TAZO 3.375 GM in NA CHLORIDE 0.9% 100 ML IV SCH (00:40)
[2025-03-25 03:45] VITALS: BP 114/55; TEMP 97.7
--- NOTE | 2025-03-25 03:54 | HP ---
Date of Admission: 03/24/2025 Chief Complaint: Right breast pain. History Of Present Illness: This is a 69-year-old pleasant female patient, who came into emergency r oom with 2 days' history of pain in her right breast. Denies any fever, chills, nausea, vomiting. N o fall or injury. After she was evaluated in emergency room, she was diagnosed as having cellulitis of the right breast and I was contacted by ER physician requesting admission to hospital and the verito ent was admitted to hospital. Allergies to codeine causing respiratory suppression and today when freddy lechuga was in emergency room, she notified emergency room staff that she was allergic to cefuroxime and wh en I asked her what kind of reaction she had, she says it was bad reaction and when I specifically as ked her if she had any throat closing or tightening type of feeling or fainting type of feeling or sh ortness of breath, she denies any of those kind of reaction, but she does not know any details about her allergic reaction to that, but denies any anaphylactic type of reaction. She also says that she has taken penicillin in the past without any problem. Medications: List reviewed. Review of Systems: Dermatology: As mentioned above. All other systems reviewed and negative. Past Medical History: Significant for chronic kidney disease stage IIIA, hypothyroidism, COPD, hyper lipidemia, gastroesophageal reflux disease, osteoporosis. Past Surgical History: Cholecystectomy, appendectomy, hysterectomy, and removal of ovarian cyst. Family History: Father , had coronary artery disease and myocardial infarction. Mother due to sepsis. Brother due to coronary artery disease, diabetes, and lung cancer. Social History: Prior history of smoking, she quit smoking in 2019. Use of alcohol, rarely. Past Medical History: Significant for chronic respiratory failure with hypoxia, morbid obesity, impa ired fasting glucose. Physical Examination: Vital Signs: Temperature 98.5, pulse 77, respiratory rate 17, blood pressure 133/64, oxygen saturati on 97%. Height 5 feet 3 inches, weight 239 pounds. General: Awake, alert, oriented, not in distress. HEENT: Head atraumatic, normocephalic. Conjunctivae nonerythematous. Sclerae white. Mouth, no thr ush or edema noted. Ears/Nose, no mass, lesion, discharge noted. Neck: Supple. No JVD, lymph nodes, bruit, thyromegaly noted. Lungs: Bilateral good equal air entry. Clear to auscultation. No rhonchi. No rales. Heart: Normal heart sounds, no murmur or gallop. Abdomen: Soft, bowel sounds normal. No guarding, rigidity, tenderness, mass, hepatosplenomegaly, dis tention, or bruit noted. Extremities: No leg edema. No calf tenderness. Skin: No rash, ulcer, cellulitis. Lymphatics: No lymph node enlargement in neck, supraclavicular, infraclavicular region. Neuro: No focal neurological deficit. Chest: Unremarkable. External Genitalia: Deferred. Rectal: Deferred. Breasts: Breast examination which was done in presence of the patient's nurse on the floor after obt aining the patient's permission and right breast has redness of the skin in the center area of the br east involving nipple and areola and skin around it and this area is extremely tender to touch. Ther e is no evidence of any discharge or bleeding from this nipple. No evidence of any fluctuation. Laboratory Data: WBC 15.6, hemoglobin 12.5, platelets 340. Sodium 137, potassium 3.8, chloride 105, bicarb 27, BUN 22, creatinine 1.51, glucose 116, lactic acid 1. Liver function tests unremarkable. Ultrasound of the breast shows dilated ducts, retroareolar region of the right breast with heterogen eous tissue which may represent cellulitis. Impression: 1. Cellulitis, right breast. 2. Chronic kidney disease stage IIIA. 3. Hypothyroidism. 4. COPD. 5. Chronic respiratory failure with hypoxia. 6. Osteoporosis. 7. Hyperlipidemia. 8. Gastroesophageal reflux disease. 9. Impaired fasting glucose. 10. Morbid obesity. Plan: Admit the patient to hospital for further evaluation and management of this problem. The [facility] ent is appropriate for inpatient and is expected to spend 2 midnights in hospital. For her celluliti s in emergency room, she started to get Levaquin and vancomycin. After I talked to her, I will disco ntinue those antibiotic and start her on Zosyn. We will monitor her for clinical response and possib le discharge to go home day after tomorrow with oral antibiotic which will be Augmentin. For her [employer] D, we will continue her nebulizer treatment per order. No need for further intervention. She takes famotidine and spironolactone at home and other diuretic, triamterene/HCTZ for chronic leg swelling p roblem. We will continue those. No need for further intervention. Total time spent 60 minutes including review of last office visit record from 02/04/2025, communicati on with emergency room physician, review of emergency room visit record, and performing today's evalu ation and management. KIT/MODL Voice ID: [id number]
[2025-03-25] MEDS: DIPHENHYDRAMINE 25 MG TAB/CAP PO ONE (04:25)
[2025-03-25 05:12] LABS: Absolute Lymphocytes (CBC) 1.6 K/uL (0.7-4.9); Hematocrit 33.3 % (36.0-45.0); Hemoglobin 11.6 g/dL (12.0-15.0); MCH 30.0 pg (27.0-35.0); MCHC 35.0 g/dL (32.0-36.0); MCV 85.7 fL (80-100); MPV 7.6 fL (7.6-11.3); Nucleated RBC Absolute Count 0.0 (0-0); Nucleated Red Blood Cells % 0.0 % (0-0); RBC Red Blood Cell Count 3.88 M/uL (3.86-4.86); White Blood Count 11.50 thou/uL (4.3-10.9)
[2025-03-25 05:29] LABS: Anion Gap 9.3 mEq/L (5.0-15.0); BUN Blood Urea Nitrogen 21.0 mg/dL (7-18); Glucose Level 112.0 mg/dL (74-106); Potassium 3.3 mEq/L (3.5-5.1)
[2025-03-25] MEDS ORDERED: PIPER TAZO 2.25 GM in NA CHLORIDE 0.9% 50 ML IV SCH (08:00)
[2025-03-25] MEDS: POTASSIUM CL SA 10 MEQ TAB PO ONE (08:07)
[2025-03-25] MEDS: levoFLOXacin 500 MG TAB PO ONE (08:07)
[2025-03-25] MEDS ORDERED: ENOXAPARIN 30 MG/0.3 ML SQ SCH (09:00)
[2025-03-25] MEDS ORDERED: MAXZIDE (HCTZ 25/TRIAMTERENE 37.5MG) TAB PO SCH (09:00)
[2025-03-25] MEDS ORDERED: SPIRONOLACTONE 25 MG TABLET PO SCH (09:00)
[2025-03-25] MEDS ORDERED: VANCOMYCIN 2 GM in NA CHLORIDE 0.9% 500 ML IVPB SCH (12:00)
--- NOTE | 2025-03-25 19:56 | DS ---
Date of Discharge: 03/25/2025 Disposition: Discharged to go home. Physical Examination: HEENT: Unremarkable. Lungs: Clear to auscultation. Heart: Sounds normal. Abdomen: Soft. Bowel sounds normal. No guarding, rigidity, tenderness, distention. Extremities: No leg edema. Breasts: Right breast examination limited to inspection, done in presence of nurse this morning. He r area of cellulitis has improved. There is reduction in intensity of the pink discoloration of the skin and there is no worsening noted compared to yesterday. No new findings. Discharge Diagnoses: 1. . 2. . Discharge Medications: 1. . 2. . Laboratory Data: Yesterday upon admission, , . Today, WBC 11.5, hemoglobin 11.6 , platelets 279, sodium 140, potassium 3.3, chloride 107, bicarb 27, BUN 21, creatinine 1.35, glucose 112. Hospital Course: This is a 69-year-old female patient, who was admitted to hospital yesterday after she came into emergency room with right breast cellulitis. Please see dictated H and P for more info rmation. After the patient was evaluated in ER, she was admitted to hospital. The patient listed he rself as allergic to cefuroxime and I determined that she did not have any anaphylactic reaction type of side effect, but she did not know exactly what side effects she had. So with that, we decided to try Zosyn. In emergency room, she did receive vancomycin and Levaquin. The patient did get first d ose of Zosyn last night and nurse contacted me, informed me that after about 0.5 hour to 1 hour of Zo syn infusion while she was getting it, she started to have feeling of warmness all over her body and she had some rash proximal to the injection site. No other part of the body had rash. So, nurse sto pped this infusion, contacted me at that time. She was told to discontinue Zosyn and 1 dose of Benad ryl 25 mg p.o. was given this morning. She had no other complaints. All the symptoms that she had l ast night had resolved and today after I examined, I determined that her area of breast cellulitis is better and there is no need for ongoing hospitalization, so Levaquin 500 mg p.o. x1 dose was ordered and after that, the patient was discharged to go home with 1 week of Levaquin to be continued on out patient basis and she was instructed to start it tomorrow and I will see her at office next week. KIT/MODL Voice ID: [id number] Report ID: [id number]
[2025-03-26] MEDS ORDERED: LEVOFLOXACIN 750MG/D5W 150 ML IV SCH (11:00)
== END 2025-03-25 08:46 | disposition home or self-care (01) ==
LOC: ER 09:44 → INTOOBSV 12:03 → ERHOLD 12:03 → 2ND 12:38
PROVIDERS: ADMIT Internal Medicine; ATTEND Internal Medicine
DX: N61.0 Mastitis without abscess (principal); D72.829 Elevated white blood cell count, unspecified; J96.11 Chronic respiratory failure with hypoxia; N18.31 Chronic kidney disease, stage 3a; E03.9 Hypothyroidism, unspecified; J44.9 Chronic obstructive pulmonary disease, unspecified; M81.0 Age-related osteoporosis without current pathological fracture; E78.5 Hyperlipidemia, unspecified; K21.9 Gastro-esophageal reflux disease without esophagitis; R73.01 Impaired fasting glucose; E66.01 Morbid (severe) obesity due to excess calories; Z88.5 Allergy status to narcotic agent; Z88.8 Allergy status to other drugs, medicaments and biological substances
CPT/HCPCS: 87040 ×2; 85025 ×2; 80048; 36415; 83605; 80053; 76881; 96375; 96374; 99284; J3535; J2543; J3370; J7050; J7030; G0378; J7040